=== PATIENT | male | born 1940 | race Caucasian/White ===

== ENCOUNTER → 2016-04-28 | Outpatient (CLI) | payer OTHER, MEDICARE ==
--- NOTE | 2016-04-28 10:46 | DX ---
PA and Lateral Chest History: Flulike symptoms and fatigue in a 75-year-old male; comparison March 29, 2009. Findings: The heart and mediastinal contours are normal. Pulmonary vascularity is normal. No pleural effusions are identified. There is stable elevation of the right hemidiaphragm. There is central rodrigo bronchial thickening. There are no alveolar opacities seen to suggest pneumonia. There has been inter kari placement of a left shoulder arthroplasty. Impression: Findings consistent with airways disease are noted.
== END ==
LOC: BMCIMAGING 10:16
PROVIDERS: ATTEND Family Medicine
DX: J45.909 Unspecified asthma, uncomplicated (principal)

== ENCOUNTER 2016-05-01 14:48 | Inpatient (IN) | payer OTHER, MEDICARE ==
--- NOTE | 2016-05-01 14:49 | EDPHY ---
H & P Time Seen by Provider: 05/01/16 14:49 HPI/ROS: CHIEF COMPLAINT: General weakness HISTORY OF PRESENT ILLNESS: This 75-year-old man went to the [facility] for a cruise 3 weeks ago. He went to his primary care physician's office a week and half ago for a regular checkup and felt his normal self. His was in the hospital for neck surgery and got out about a week ago. He started getting sick the next day with some diarrhea which lasted for for 5 days and now is mostly resolved. This was followed by body aches and generalized weakness and a sense of fever and chills. Today he felt so weak he could not get out of bed in the ambulance was called by his . Nothing focal as far as his weakness. Not associated with cough or shortness of breath, vomiting or diarrhea. He did have nausea today. EMS was initially toned for shortness of breath by the but the patient denies that in the emergency department. REVIEW OF SYSTEMS: Eye: no change in vision ENT: no sore throat Cardiac: no chest pain or syncope Pulmonary: HPI. No cough. Abdomen: HPI, no abdominal pain now. Decreased oral intake. Musculoskeletal: no back pain Skin: no rash Neuro: no headache Constitutional: Chills and myalgias per HPI. : Decreased urination and increased water intake. A comprehensive 10 point review of systems is otherwise negative aside from elements mentioned in the history of present illness. PAST MEDICAL HISTORY: hypertension and GERD, PCP at [facility] Social history: Nonsmoker, lives with his , . General Appearance: Alert and conversant, cooperative. Eyes: No scleral icterus. ENT, Mouth: Dry mucous membranes. Respiratory: Normal respiratory effort, breath sounds equal, lungs are clear to auscultation. Cardiovascular: Regular rate and rhythm. Gastrointestinal: Abdomen is soft and non tender. Neurological: Alert and oriented x3. Normally conversant. Face symmetric, but generally weak. He can lift each foot off the bed independently and has normal dorsiflexion and plantar flexion. Skin: Warm and dry, no rashes. Musculoskeletal: No peripheral edema and no joint swelling. Psychiatric: Not agitated. Emergency Department course/MDM: History of hyponatremia, will check chemistry panel. Chest x-ray influenza and urinalysis. EKG. 1550: BUN/Creat 68/5.2, results discussed, plan for admission with renal consult. IV fluid hydration for clinically dehydrated, NS 1000ml. 1625: Mcneil placed, 450ml out, Dayan here. WBC of 16k noted; UA shows 1-3 RBC, 3-5 WBC not suggestive of UTI. Chest x-ray viewed by myself does not show focal infiltrate to suggest bacterial pneumonia. Patient does not have cough or SOB and is 93% O2 sat on room air on arrival. Will monitor. Constitutional: Initial Vital Signs Temperature (C) 36.9 C 05/01/16 15:03 Heart Rate 100 05/01/16 15:03 Respiratory Rate 18 05/01/16 15:03 Blood Pressure 149/60 H 05/01/16 15:03 O2 Sat (%) 93 05/01/16 15:03 O2 Delivery Mode Nasal Cannula O2 (L/minute) 2 Allergies/Adverse Reactions: No Known Allergies Allergy (Unverified 03/26/09 11:53) Home Medications: Medication Instructions Recorded Atorvastatin Calcium [Lipitor 40 40 mg PO DAILY 05/01/16 mg (*)] Cholecalciferol Vit D3 [Vitamin D3 1,000 units PO DAILY 05/01/16 (*)] FOLIC ACID 0.4 mg PO DAILY 05/01/16 Furosemide [Lasix 20 MG (*)] 20 mg PO DAILY 05/01/16 Loratadine [Claritin] 10 mg PO DAILY 05/01/16 Losartan Potassium [Cozaar 50 mg 100 mg PO DAILY 05/01/16 (*)] Metoprolol Succinate Xr [Toprol Xl 25 mg PO DAILY 05/01/16 25 mg (*)] [place]-3 Fatty Acids [Fish Oil 1000 1,000 mg PO DAILY 05/01/16 mg (*)] Omeprazole 20 mg PO DAILY 05/01/16 amLODIPine BESYLATE [Norvasc 10 mg 10 mg PO DAILY 05/01/16 (*)] Medical Decision Making - Diagnostics EKG Interpretation: 12-lead EKG interpreted by me; official reading is in trace master. My interpretation is sinus rhythm, nonspecific ST flattening, rate 94. Imaging: Chest x-ray viewed by myself shows interstitial infiltrate but no definite lobar pneumonia Differential Diagnosis: Differential for weakness considered including but not limited to hyponatremia, other metabolic, dehydration, influenza, acute coronary syndrome, sepsis. Consult/Admit Bed Type: [place] [id number], Dayan 1600 - Data Points Laboratory Results: Laboratory Results 05/01/16 14:55 05/01/16 14:55 Medications Given: Discontinued Medications Aspirin (Aspirin) 325 mg PO ONCE ONE Stop: 05/01/16 17:50 Last Admin: 05/01/16 18:57 Dose: 325 mg Sodium Chloride (Ns) 1,000 mls @ 0 mls/hr IV ONCE ONE PRN Reason: Wide Open Stop: 05/01/16 15:54 Last Admin: 05/01/16 16:05 Dose: 1,000 mls Sodium Chloride (Ns) 1,000 mls @ 0 mls/hr IV ONCE ONE PRN Reason: Wide Open Stop: 05/01/16 17:07 Last Admin: 05/01/16 17:50 Dose: 1,000 mls Departure - Departure Disposition: [facility] Inpatient Acute Clinical Impression: Acute renal failure Qualifiers: Acute renal failure type: unspecified Qualifier Code: (N17.9) Acute kidney failure, unspecified Condition: Fair
[2016-05-01 15:15] LABS: ADD MORPH? NO; FRAGMENT RBC FLAG 0 (0-99); HEMATOCRIT 37.1 % (40.0-51.0); HEMOGLOBIN 13.6 g/dL (13.7-17.5); LIPEMIA HEMOLYSIS FLAG 90 (0-99); MEAN CELL HEMOGLOBIN 31.6 pg (27.9-34.1); MEAN CELL HEMOGLOBIN CONCENTR. 36.7 g/dL (32.4-36.7); MEAN CELL VOLUME 86.1 fL (81.5-99.8); MEAN PLATELET VOLUME 11.4 fL (8.7-11.7); PLATELET CLUMPS FLAG 10 (0-99); PLATELET COUNT 196 10^3/uL (150-400); RED BLOOD CELL COUNT 4.31 10^6/uL (4.40-6.38); RED CELL DISTRIBUTION WIDTH 13.5 % (11.5-15.2)
--- NOTE | 2016-05-01 15:15 | CPEKG ---
Heart Rate: 94 RR Interval: 638 P-R Interval: 180 QRSD Interval: 98 QT Interval: 396 QTC Interval: 496 P [place]: 62 QRS [place]: 42 T Wave [place]: 14 EKG Severity - BORDERLINE ECG - EKG Impression: SINUS RHYTHM EKG Impression: MINIMAL ST DEPRESSION, LATERAL LEADS EKG Impression: BORDERLINE PROLONGED QT INTERVAL Electronically Signed By: Antonio Amaya 01-May-2016 15:25:51
[2016-05-01 15:17] LABS: ADD DIFF? YES; ADD SCAN? NO; ATYPICAL LYMPHOCYTE FLAG 140 (0-99); LEFT SHIFT FLG 300 (0-99)
[2016-05-01 15:31] LABS: ANION GAP 20 mEq/L (8-16); CALCIUM 7.7 mg/dL (8.5-10.4); CARBON DIOXIDE 20 mEq/l (22-31); CHLORIDE 94 mEq/L (97-110); CREATININE 5.2 mg/dL (0.7-1.3); GLOMERULAR FILTRATION RATE 11; GLUCOSE 135 mg/dL (70-100); POTASSIUM 3.6 mEq/L (3.5-5.2); SODIUM 134 mEq/L (134-144)
[2016-05-01] MEDS ORDERED: NS 1,000 ML IV ONE ×2 (15:53→17:06)
[2016-05-01 16:09] LABS: ECHINOCYTES 2+; PLATELET ESTIMATE ADEQUATE (ADEQ); TOXIC GRANULATION PRESENT
--- NOTE | 2016-05-01 17:19 | DX ---
Chest, AP and Lateral, 3 views History: Weakness, flulike symptoms x1 week, arthralgias Comparison: April 28, 2016 Findings: Best detected on the lateral view is new diffuse interstitial infiltrate and bilateral post erior pleural effusions consistent with bilateral viral pneumonia. A left shoulder replacement remai ns in anatomic alignment. Impression: Viral pneumonitis.
[2016-05-01] MEDS ORDERED: ASPIRIN 325 MG TAB PO ONE (17:49)
--- NOTE | 2016-05-01 18:12 | PDGENHP ---
History and Physical - Chief Complaint weakness, SOB, malasise - History of Present Illness 75 yo male here with multiple complaints. Had diarrhea about a week ago and has been having decreased PO since. No further N/V or diarrhea. Now with generalized malaise. Some SOB. He feels tight. on 2L of O2, baseline is none. He was found to have ARF with elevated Cr. Started on IVF 2 Liters. Reports a hx of prostate enlargement. not treated. He denies CP, but his EKG shows minimal ST depression on the lateral leads. A troponin was not checked. He has Leukocytosis. He reports tactile fevers intermittently for a few days. CXR shows bilateral infiltrate, viral pneumonia vs pneumonitis pattern. Influenza testing was normal. ROS: + per HPI, otherwise negative. Denies CP, + SOB, - palpitations, - leg swelling PMHX: HTN, GERD, HLD SOC: DAILY ETOH (NONE IN OVER A WEEK), TOBACCO SOME TIMES MEDS/ALL: REVIEWED O: VSS ON 2 LO2 NAD AAOX3 MM DRY NO JVD RRR DECREASE LUNG SOUNDS BILATERALLY S/NT/ND NO EDEMA : SLAUGHTER IN PLACE LABS: REVIEWED EKG: BORDERLINE PROLONGED QT, MINIMAL ST DEPRESSION IN LATERAL LEADS I/P #ACUTE RENAL FAILURE, LIKELY PRERENAL. ALTHOUGH HE DOES REPORT A HX ENLARGED PROSTATE #VIRAL VS BACTERIAL BILATERAL PNEUMONIA #DEHYDRATION #N/V/D: RESOLVED PER HIS REPORT #FEVER: INTERMITTENT #MINIMAL ST DEPRESSION ON EKG #BORDERLINE PROLONGED QT PLAN: ADMIT CV: NO CP AT THIS TIME. WILL CHECK STAT TROPONIN. WILL ORDER TTE. NO ZOFRAN OR OTHER AGENTS THAT PROLONG QT RENAL: CONT WITH IVF. HOLD HTN MEDS. HE DOES TAKE LASIX HE SAYS FOR LEG SWELLING. HOLDING. MONITOR CLOSELY ID/PULM: GIVEN HX OF INTERMITTENT FEVER AND LEUKOCYTOSIS, WILL TREAT WITH IV ABX. SOUNDS TIGHT, MAY NEED STEROIDS, BUT WILL DETERMINE CLINICAL COURSE. HEME: LOVENOX GI: REGLAN PRN. PROTONIX. TOTAL TIME IS 65 MINUTES History Information - Allergies/Home Medication List Allergies/Adverse Reactions: No Known Allergies Allergy (Unverified 03/26/09 11:53) Home Medications: Atorvastatin Calcium [Lipitor 40 mg (*)] 40 mg PO DAILY 05/01/16 [Last Taken 11/06] Cholecalciferol Vit D3 [Vitamin D3 (*)] 1,000 units PO DAILY 05/01/16 [Last Taken 04/30/16] FOLIC ACID 0.4 mg PO DAILY 05/01/16 [Last Taken 04/30/16] Furosemide [Lasix 20 MG (*)] 20 mg PO DAILY 05/01/16 [Last Taken 04/30/16] Loratadine [Claritin] 10 mg PO DAILY 05/01/16 [Last Taken 04/30/16] Losartan Potassium [Cozaar 50 mg (*)] 100 mg PO DAILY 05/01/16 [Last Taken 04/30] Metoprolol Succinate Xr [Toprol Xl 25 mg (*)] 25 mg PO DAILY 05/01/16 [Last Taken 04/30/16] [place]-3 Fatty Acids [Fish Oil 1000 mg (*)] 1,000 mg PO DAILY 05/01/16 [Last Taken 04/30/16] Omeprazole 20 mg PO DAILY 05/01/16 [Last Taken 04/30/16] amLODIPine BESYLATE [Norvasc 10 mg (*)] 10 mg PO DAILY 05/01/16 [Last Taken 11/06] I have personally reviewed and updated: medical history, social history - Social History Smoking Status: Never smoked Physical Exam Temp Pulse Resp BP Pulse Ox 36.5 C 76 16 144/70 H 98 05/01/16 16:00 05/01/16 16:00 05/01/16 16:00 05/01/16 16:00 05/01/16 16:00 Lab Data & Imaging Review 05/01/16 14:55 05/01/16 14:55 WBC 16.64 10^3/uL (3.80-9.50) H 05/01/16 14:55 RBC 4.31 10^6/uL (4.40-6.38) L 05/01/16 14:55 Hgb 13.6 g/dL (13.7-17.5) L 05/01/16 14:55 Hct 37.1 % (40.0-51.0) L 05/01/16 14:55 MCV 86.1 fL (81.5-99.8) 05/01/16 14:55 MCH 31.6 pg (27.9-34.1) 05/01/16 14:55 MCHC 36.7 g/dL (32.4-36.7) 05/01/16 14:55 RDW 13.5 % (11.5-15.2) 05/01/16 14:55 Plt Count 196 10^3/uL (150-400) 05/01/16 14:55 MPV 11.4 fL (8.7-11.7) 05/01/16 14:55 Neut % (Auto) Not Reported 05/01/16 14:55 Lymph % (Auto) Not Reported 05/01/16 14:55 [place] % (Auto) Not Reported 05/01/16 14:55 Eos % (Auto) Not Reported 05/01/16 14:55 Baso % (Auto) Not Reported 05/01/16 14:55 Nucleat RBC Rel Count 0.0 % (0.0-0.2) 05/01/16 14:55 Absolute Neuts (auto) Not Reported 05/01/16 14:55 Absolute Lymphs (auto) Not Reported 05/01/16 14:55 Absolute Monos (auto) Not Reported 05/01/16 14:55 Absolute Eos (auto) Not Reported 05/01/16 14:55 Absolute Basos (auto) Not Reported 05/01/16 14:55 Absolute Nucleated RBC 0.00 10^3/uL (0-0.01) 05/01/16 14:55 Immature Gran % Not Reported 05/01/16 14:55 Seg Neutrophils % 68 % 05/01/16 14:55 Band Neutrophils % 20 % 05/01/16 14:55 Lymphocytes % 8 % 05/01/16 14:55 Monocytes % 1 % 05/01/16 14:55 Eosinophils % 2 % 05/01/16 14:55 Metamyelocytes % 1 % 05/01/16 14:55 Immature Gran # Not Reported 05/01/16 14:55 Absolute Seg Neuts 11.32 10^/uL (1.70-6.50) H 05/01/16 14:55 Absolute Band Neuts 3.33 10^3/uL (0.00-0.70) H 05/01/16 14:55 Absolute Lymphocytes 1.33 10^3/uL (1.00-3.00) 05/01/16 14:55 Absolute Monocytes 0.17 10^3/uL (0.30-0.80) L 05/01/16 14:55 Absolute Eosinophils 0.33 10^3/uL (0.03-0.40) 05/01/16 14:55 Absolute Metamyelocyte 0.17 10^3/mL (0.00-0.00) H 05/01/16 14:55 Toxic Granulation PRESENT H 05/01/16 14:55 Platelet Estimate ADEQUATE (ADEQ) 05/01/16 14:55 Echinocytes 2+ H 05/01/16 14:55 Sodium 134 mEq/L (134-144) 05/01/16 14:55 Potassium 3.6 mEq/L (3.5-5.2) 05/01/16 14:55 Chloride 94 mEq/L (97-110) L 05/01/16 14:55 Carbon Dioxide 20 mEq/l (22-31) L 05/01/16 14:55 Anion Gap 20 mEq/L (8-16) H 05/01/16 14:55 BUN 68 mg/dL (7-23) H 05/01/16 14:55 Creatinine 5.2 mg/dL (0.7-1.3) H 05/01/16 14:55 Estimated GFR 11 05/01/16 14:55 Glucose 135 mg/dL (70-100) H 05/01/16 14:55 Calcium 7.7 mg/dL (8.5-10.4) L 05/01/16 14:55 Urine RBC 1-3 /hpf (0-3) 05/01/16 16:30 Urine WBC 3-5 /hpf (0-3) H 05/01/16 16:30 Ur Epithelial Cells NONE SEEN /lpf (NONE-1+) 05/01/16 16:30 Influenza Typ A,B (DFA) NEGATIVE FOR FLU (NEGATIVE) 05/01/16 14:55 Assessment & Plan Assessment: Acute renal failure (Acute)
[2016-05-01] MEDS ORDERED: METOCLOPRAMIDE 10 MG TAB PO PRN (18:13)
[2016-05-01] MEDS: PANTOPRAZOLE SODIUM 40 MG in NS 100 ML IV SCH (18:58)
[2016-05-01] MEDS: NS 1,000 ML IV SCH (18:59)
[2016-05-01 19:28] LABS: TROPONIN I 0.239 ng/mL (0-0.034)
[2016-05-01] MEDS: AZITHROMYCIN IV 500 MG in D5W 250 ML IV SCH (19:47)
--- NOTE | 2016-05-01 19:56 | SOAPPROG ---
SOAP Progress Note Assessment/Plan: Assessment:Plan: ARF-in setting of lasix, losartan, diclofenac, diarrhea and poor PO intake -check urine studies -quantify urine protein if present -urine culture if indicated -check us of kidneys -rai for now Muscle aches-on statin -recent flu s/p tamiflu per patient -stop lipitor -check CPK Viral pneumonitis on CXR-s/p Tamiflu -doubt there is role for second course -being covered for bacterial pneumonia with ceftriaxone and azithromycin 05/01/16 19:53 Subjective: muscle aches and ARF Objective: Vital Signs Temp Pulse Resp BP Pulse Ox 36.5 C 95 18 113/55 L 93 05/01/16 18:09 05/01/16 18:09 05/01/16 18:09 05/01/16 18:09 05/01/16 18:09 04/30/16 05/01/16 05/02/16 05:59 05:59 05:59 Output Total 1110 Balance -1110 Physical Exam - Physical Exam General Appearance: alert, moderate distress EENT: normal ENT inspection Neck: normal inspection Respiratory: decreased breath sounds, rales Cardiac/Chest: regular rate, rhythm, No diastolic murmur, No systolic murmur Abdomen: normal bowel sounds, non-tender, soft Extremities: other (muscle tenderness), No swelling ICD10 Worksheet Patient Problems: Problems Problem Status Diagnosed Acute renal failure Acute
[2016-05-01] MEDS: HEPARIN 5,000 UNIT/0.5 ML SYR SC SCH (20:11)
--- NOTE | 2016-05-01 20:37 | GCON ---
[f rep st] CONSULTATION NEPHROLOGY CONSULTATION. DATE OF CONSULTATION: 05/01/2016 REASON FOR CONSULTATION: Acute renal failure. ASSESSMENT: 1. Acute renal failure related to dehydration with concurrent use of nonsteroidals, angiotensin receptor yang and loop diuretic. 2. History of a normal creatinine as recently as 1 week ago with a value of 1.0 on 04/28/2016. 3. History of diarrhea. 4. CXR with evidence of viral pneumonitis 5. Severe muscle and joint aches RECOMMENDATIONS: 1. Hydrate. 2. Check urine studies. 3. Check CPK due to the patient's muscle symptoms. 4. Check renal ultrasound. 5. Hold losartan and loop diuretic. 6. Follow labs. 7. Quantify urine protein if dipstick abnormal. 8. Discontinue Lipitor for now HISTORY: The patient is a 75-year-old male I have been asked to consult on by Dr. Antonio Amaya from the emergency room. He has close to a 12-day history of malaise. He started feeling ill during the last couple days of March. He saw his primary care physician, per his report, on April 25. At that time he had labs drawn, which showed a creatinine of 0.8. It sounds like he was treated with Tamiflu at that time. He came back 3 days later, on the . He had been having problems with nausea for several days. He had severe diarrhea one evening. He denied any fevers but did have achy joints and muscles with progressive weakness. He was given some IV fluid on the and it sounds like he felt better for a day or so. He then continued to decline and subsequently was referred to the emergency room at [facility] for further evaluation and treatment. In the emergency room today he had a creatinine of 5.2. Clinically, he was felt to be dehydrated. IV fluids were started. Mcneil catheter was placed which produced about 400 cc of urine per Dr. Amaya's report. Currently he is hemodynamically stable. He complains of severe muscle aches. He has been on his Lipitor long-term. He has had no change in that medication. He has had a left heart catheterization performed way back on March 26, 2009 , which revealed mild coronary artery disease at that time. He has been using diclofenac intermittently. He evidently started taking it twice a day the end of March. This helped with his muscle aches. He has also been using acetaminophen. He denies any other changes in his routine. He states with his initial illness he was given Tamiflu due to concerns of influenza as mentioned above, the exact timing of this is not clear to me. PAST SURGICAL HISTORY: He has had a left shoulder replacement back on 2009. OUTPATIENT MEDICATIONS: Amlodipine 10 mg daily, atorvastatin 40 mg daily, Lasix 20 mg daily, losartan 100 mg daily, metoprolol 25 mg daily, omeprazole 20 mg daily, diclofenac 75 mg twice daily. He takes [id number] medications in the form of aspirin, fish oil, folic acid, loratadine, vitamin D3 as well as occasional ibuprofen. He has not been using the ibuprofen along with the diclofenac. He was born in [place], [place]. He grew up in [place]. He came out to [place] in 1956 to attend college. He graduated with a degree in liberal arts from and then went on to get a Master's in social work at . 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 He is . His has medical problems and underwent a recent surgery and is in need of help at home. ALLERGIES: None. FAMILY HISTORY: Noncontributory. SOCIAL HISTORY: Noncontributory. REVIEW OF SYSTEMS: Negative except for that included in history of present illness. PHYSICAL EXAMINATION: VITAL SIGNS: Temperature 36.5, pulse 95, respirations 18 , blood pressure 113/55. He is saturating 93% on 2 L. APPEARANCE: Mild distress. Skin unremarkable. NEUROLOGICAL: Grossly intact. Muscle aches all over. HEENT: Head atraumatic, normocephalic. NECK: Unremarkable. HEART: Regular with no extra heart sounds. LUNGS: Decreased with scattered rales. ABDOMEN: Exam benign. EXTREMITIES: Free of edema. Distal pulses are intact. X-ray shows changes suggestive of viral pneumonitis. LABS: As previously mentioned, show a creatinine of 5.2 with normal electrolytes. Calcium 7.7. Glucose mildly elevated at 135. Urinalysis is microscopic only and shows 3-5 white blood cells. Flu screen was negative on . CBC remarkable for a white count of 16.6 thousand, platelet count of 196,000. ASSESSMENT: Acute renal failure. The patient has chest x-ray findings consistent of viral pneumonitis. He has had a recent Tamiflu, per his report. His current flu screen is negative but certainly his history of this illness with muscle aches could be manifestation of the flu. It does not seem like he would need a repeat course of therapy with Tamiflu. He is being placed on broad spectrum antibiotics in the form of azithromycin and ceftriaxone, which is probably reasonable given his suspected post influenza state. He has acute renal failure. His Lasix and losartan have been discontinued. I would stop his atorvastatin due to his muscle aches. I would check a CPK. Renal ultrasound will be requested just to make sure there are no other anatomic issues that could be contributing to his acute renal failure. Urine studies will be performed to check his fractional excretion of sodium as well as quantify any protein if present. With his emergency room study, we do not know if there is evidence of hematuria or proteinuria therefore we will go ahead and check a dipstick to see if there are abnormalities present on that. We will get labs again in the morning. He has no acute indications for dialysis. Further evaluation and treatment will depend on the results of his initial blood and urine studies. /[id number]/MODL MTDD
--- NOTE | 2016-05-01 21:05 | CPEKG ---
Heart Rate: 96 RR Interval: 625 P-R Interval: 192 QRSD Interval: 118 QT Interval: 396 QTC Interval: 501 P [place]: 61 QRS [place]: 35 T Wave [place]: -19 EKG Severity - ABNORMAL ECG - EKG Impression: SINUS RHYTHM EKG Impression: NONSPECIFIC INTRAVENTRICULAR CONDUCTION DELAY EKG Impression: BORDERLINE ST DEPRESSION, LATERAL LEADS Electronically Signed By: Evelio Ambriz 01-May-2016 21:43:32
[2016-05-01] MEDS: IPRATROPIUM/ALBUTEROL 3 ML DEYVIAL IH SCH (21:06)
[2016-05-02 00:13] LABS: COLOR YELLOW; LEUKOCYTE ESTERASE,URINE TRACE (NEGATIVE); NITRITE,URINE NEGATIVE (NEGATIVE)
[2016-05-02 00:24] LABS: AMORPHOUS PRESENT /hpf (NONE-1+); BACTERIA 1+ /hpf (NONE SEEN); MUCUS TRACE /lpf (NONE-1+)
[2016-05-02] MEDS: HEPARIN 5,000 UNIT/0.5 ML SYR SC SCH ×3 (05:12→21:10)
[2016-05-02] MEDS: IPRATROPIUM/ALBUTEROL 3 ML DEYVIAL IH SCH ×5 (05:36→22:31)
[2016-05-02 05:51] LABS: % IMMATURE GRANULYOCYTES 0.7 % (0.0-1.1); ABSOLUTE IMMATURE GRANULOCYTES 0.12 10^3/uL (0.00-0.10); ADD DIFF? NO; ADD MORPH? NO; ADD SCAN? YES; FRAGMENT RBC FLAG 0 (0-99); HEMATOCRIT 32.8 % (40.0-51.0); HEMOGLOBIN 11.9 g/dL (13.7-17.5); LIPEMIA HEMOLYSIS FLAG 90 (0-99); MEAN CELL HEMOGLOBIN 31.1 pg (27.9-34.1); MEAN CELL HEMOGLOBIN CONCENTR. 36.3 g/dL (32.4-36.7); MEAN CELL VOLUME 85.6 fL (81.5-99.8); MEAN PLATELET VOLUME 11.2 fL (8.7-11.7); PLATELET CLUMPS FLAG 10 (0-99); PLATELET COUNT 175 10^3/uL (150-400); RED BLOOD CELL COUNT 3.83 10^6/uL (4.40-6.38); RED CELL DISTRIBUTION WIDTH 13.5 % (11.5-15.2)
[2016-05-02 05:57] LABS: ATYPICAL LYMPHOCYTE FLAG 110 (0-99); LEFT SHIFT FLG 300 (0-99)
[2016-05-02 06:05] LABS: ANION GAP 18 mEq/L (8-16); CALCIUM 6.6 mg/dL (8.5-10.4); CARBON DIOXIDE 18 mEq/l (22-31); CHLORIDE 102 mEq/L (97-110); CREATININE 4.8 mg/dL (0.7-1.3); GLOMERULAR FILTRATION RATE 12; GLUCOSE 88 mg/dL (70-100); POTASSIUM 3.3 mEq/L (3.5-5.2); SODIUM 138 mEq/L (134-144)
[2016-05-02 06:09] LABS: MAGNESIUM 0.8 mg/dL (1.6-2.3)
[2016-05-02] MEDS ORDERED: PROTOCOL MAGNESIUM 1 DOSE IV PRN (06:13)
[2016-05-02] MEDS ORDERED: PROTOCOL POTASSIUM 1 DOSE MISC PRN (06:13)
[2016-05-02 06:23] LABS: SCAN NEGATIVE
[2016-05-02] MEDS ORDERED: MAGNESIUM SULF 2 GM/WATER 50 ML IV ONE (06:31)
[2016-05-02] MEDS ORDERED: POTASSIUM CL 10 MEQ TAB PO ONE ×2 (07:56→20:02)
--- NOTE | 2016-05-02 08:15 | US ---
Complete Retroperitoneal Ultrasound History: Acute renal failure. Comparison: None available. Findings: The right kidney measures 11.1 x 6.4 x 5.6 cm and the left kidney measures 11.4 x 6.1 x 5.3 cm. The kidneys are suboptimally visualized due to body habitus. The kidneys appear to have normal e chotexture, cortical thickness, and contour without hydronephrosis. The bladder is decompressed by a Mcneil. Impression: No visible etiology for the patient's acute renal failure.
[2016-05-02] MEDS: METOPROLOL SUCCINATE XR 25 MG TAB PO SCH (08:20)
[2016-05-02] MEDS: CETIRIZINE 10 MG TAB PO SCH (08:23)
[2016-05-02] MEDS: FOLIC ACID 1 MG TAB PO SCH (08:23)
[2016-05-02] MEDS: CHOLECALCIFEROL VIT D3 1,000 UNITS TAB PO SCH (08:23)
[2016-05-02] MEDS: OMEGA-3 FATTY ACIDS 1,000 MG CAP PO SCH (08:24)
--- NOTE | 2016-05-02 08:40 | CPEKG ---
Heart Rate: 110 RR Interval: 545 P-R Interval: 192 QRSD Interval: 102 QT Interval: 311 QTC Interval: 421 P [place]: 28 QRS [place]: 5 EKG Severity - ABNORMAL ECG - EKG Impression: SINUS TACHYCARDIA EKG Impression: NONSPECIFIC T ABNORMALITIES, LATERAL LEADS Electronically Signed By: Evelio Ambriz 02-May-2016 14:42:19
[2016-05-02] MEDS ORDERED: PANTOPRAZOLE SODIUM 40 MG TAB PO SCH (09:00)
[2016-05-02] MEDS ORDERED: ATORVASTATIN CALCIUM 40 MG TAB PO SCH (09:00)
[2016-05-02] MEDS: AZITHROMYCIN IV 500 MG in D5W 250 ML IV SCH (09:11)
[2016-05-02] MEDS: PANTOPRAZOLE SODIUM 40 MG in NS 100 ML IV SCH (09:53)
[2016-05-02] MEDS: PANTOPRAZOLE SODIUM 40 MG TAB PO SCH (09:54)
--- NOTE | 2016-05-02 11:31 | SOAPPROG ---
SOAP Progress Note Assessment/Plan: Assessment/Plan: XIMENA: Cr peaked at 5.2, improving with IVFs. CK wnl, renal US reviewed with no acute findings. - Continue IVFs. - Will continue to monitor renal parameters. - Continue to hold ACEI and Lasix. - Avoid MOM, morphine, demerol, NSAIDs, contrast, aminoglycosides, fleets, and other nephrotoxins. Hypokalemia: replaced today, will monitor. Hypomagnesemia: replaced today, will monitor. Subjective: No acute events overnight. Pt states that he still has muscle aches but it's a little better, feeling more weak overall. Objective: Vital Signs Temp Pulse Resp BP Pulse Ox 36.7 C 112 H 20 133/62 H 90 L 05/02/16 07:15 05/02/16 08:20 05/02/16 07:15 05/02/16 08:20 05/02/16 07:15 Laboratory Results 05/02/16 05:49 05/02/16 05:49 05/01/16 05/02/16 05/03/16 05:59 05:59 05:59 Intake Total 350 Output Total 1560 Balance -1210 General: alert and oriented, no acute distress Eyes: EOMI, PERRL OP: Clear CV: RRR Resp: CTA bilat, nonlabored respirations Abd; Soft, NT Ext: trace edema BLE Neuro: CN II-XII grossly intact, no asterixis Psych: cooperative, appropriate mood and affect ICD10 Worksheet Patient Problems: Problems Problem Status Diagnosed Acute renal failure Acute
--- NOTE | 2016-05-02 14:55 | ECHO ---
[id number] + + [address] : : [place] [address] : : [phone] + + Adult Echocardiographic Report + ------+ :Name: RAVIN GRANDA SStudy Date: 05/02/2016 09:10 AM : : Hospital Admission Number: [id number] Locatio n: 370: :: 1940 Gender: Male Height: 68 in : :Age: 75 yrs Race: WH Weight: 205 lb : :Reason For Study: Eval LV Fx : : BSA: 2.1 meters 2 : :History: Abnormal EKG, Tachycardia, Acute Renal Failure : + ------+ MMode/2D Measurements & Calculations IVSd: 1.2 cm LVIDd: 4.4 cm FS: 43.6 % Ao root diam: 3.0 cm LVPWd: 1.2 cm LVIDs: 2.5 cm EDV(Teich): 89.3 ml ACS: 1.6 cm ESV(Teich): 22.3 ml EF(Teich): 75.0 % Normal Measurement Values: + + :LVIDd (3.5-5.7cm) IVSd (0.6-1.1cm) LVPWd (0.6-1.1cm) Aortic Root (2.0-3.7cm)Left Atrium (1.5-4.0cm): :LV Vol(d) (76-115ml) LV Vol(s) (29-48ml) Ejec Fraction (50-65%)PV Vikas (0.6- 1.2m/s) TV Vikas (0.4-1.0m/s) : :MV E Vikas (0.8-1.0m/s)MV A Vikas (0.3-1.0m/s)LVOT Vikas (0.7-1.2m/s) Asc Ao Vikas ( 0.9-1.8m/s) : + + Doppler Measurements & Calculations MV E max vikas: 54.8 cm/sec Ao V2 max: 162.9 cm/sec LV V1 max: 97.7 cm/sec MV A max vikas: 121.9 cm/sec Ao max P.6 mmHg LV V1 max P.8 mmHg MV E/A: 0.45 Left Ventricle The left ventricle is normal in size. There is normal left ventricular wall thickness. The left ventricular ejection fraction is normal. There is Doppler evidence for diastolic dysfunction. Ejection Fraction = 75%. There is no obvious left venticular wall motion. Right Ventricle The right ventricle is normal in size and function. Atria The left atrial size is normal. Right atrial size is normal. Mitral Valve The mitral valve is normal in structure and function. There is no evidence of mitral valve prolapse. There is no mitral valve stenosis. There is no mitral regurgitation noted. Tricuspid Valve Normal tricuspid valve. No tricuspid regurgitation. Aortic Valve The aortic valve is normal in structure and function. There is no aortic stenosis. There is no aortic insufficiency. Pulmonic Valve The pulmonic valve is normal in structure and function. There is no pulmonic valvular regurgitation. Great Vessels The aortic root is normal size. Pericardium/Pleural Tachycardia. Possible small pericardial effusion vs fat pad. Conclusion A complete two-dimensional transthoracic echocardiogram was performed (2D, M-mode, Doppler and color flow Doppler). The left ventricular ejection fraction is normal. There is Doppler evidence for diastolic dysfunction. Ejection Fraction = 75%. There is no obvious left venticular wall motion. The right ventricle is normal in size and function. The mitral valve is normal in structure and function. The aortic valve is normal in structure and function. Tachycardia. Possible small pericardial effusion vs fat pad. Final Reading Physician: Elsie Bishop signed on 05/02/2016 02:53 PM Ordering Physician: Shorty Dwyer Performed By: Jed Rowell, LINDACS
--- NOTE | 2016-05-02 15:43 | HOSPPROG ---
Hospitalist Progress Note Assessment/Plan: * acute renal failure * suspected prerenal * improving with fluids * nephrology is following * normal kidneys on ultrasound * viral pneumonitis versus superimposed pneumonia * does have elevated white blood cell count * will continue with antibiotics for community-acquired pneumonia * recent influenza * history of hypertension * holding medications * DVT prophylaxis * heparin Subjective: A little bit better today. Some cough Objective: Vital Signs Temp Pulse Resp BP Pulse Ox 36.8 C 118 H 20 136/68 H 90 L 05/02/16 15:10 05/02/16 15:10 05/02/16 15:10 05/02/16 15:10 05/02/16 15:10 Laboratory Results 05/02/16 05:49 05/02/16 05:49 05/01/16 05/02/16 05/03/16 05:59 05:59 05:59 Intake Total 350 Output Total 1560 Balance -1210 - Physical Exam Constitutional: no apparent distress, appears nourished, not in pain Eyes: anicteric sclera, EOMI Ears, Nose, Mouth, Throat: moist mucous membranes, hearing normal Cardiovascular: regular rate and rhythym, no murmur, rub, or gallop Respiratory: no respiratory distress Gastrointestinal: normoactive bowel sounds, soft, non-tender abdomen, no palpable masses Skin: warm Neurologic: AAOx3 Psychiatric: interacting appropriately, not anxious, not encephalopathic, thought process linear ICD10 Worksheet Patient Problems: Problems Problem Status Diagnosed Acute renal failure Acute
[2016-05-02] MEDS: NS 1,000 ML IV SCH (16:03)
[2016-05-02 18:39] LABS: ADD MORPH? NO; FRAGMENT RBC FLAG 0 (0-99); HEMATOCRIT 33.8 % (40.0-51.0); HEMOGLOBIN 12.2 g/dL (13.7-17.5); LIPEMIA HEMOLYSIS FLAG 90 (0-99); MEAN CELL HEMOGLOBIN 31.1 pg (27.9-34.1); MEAN CELL HEMOGLOBIN CONCENTR. 36.1 g/dL (32.4-36.7); MEAN CELL VOLUME 86.2 fL (81.5-99.8); MEAN PLATELET VOLUME 10.9 fL (8.7-11.7); PLATELET CLUMPS FLAG 0 (0-99); PLATELET COUNT 177 10^3/uL (150-400); RED BLOOD CELL COUNT 3.92 10^6/uL (4.40-6.38); RED CELL DISTRIBUTION WIDTH 13.4 % (11.5-15.2)
[2016-05-02 18:42] LABS: ATYPICAL LYMPHOCYTE FLAG 110 (0-99); LEFT SHIFT FLG 300 (0-99)
[2016-05-02 18:57] LABS: ALANINE AMINOTRANSFERASE 41 IU/L (21-72); ALBUMIN 2.4 g/dL (3.5-5.0); ALKALINE PHOSPHATASE 162 IU/L (38-126); ANION GAP 17 mEq/L (8-16); ASPARTATE AMINOTRANSFERASE 31 IU/L (17-59); BILIRUBIN-CONJUGATED 0.7 mg/dL (0.0-0.5); BILIRUBIN-UNCONJUGATED 0.3 mg/dL (0.0-1.1); CALCIUM 6.8 mg/dL (8.5-10.4); CARBON DIOXIDE 16 mEq/l (22-31); CHLORIDE 102 mEq/L (97-110); CREATININE 4.5 mg/dL (0.7-1.3); GLOMERULAR FILTRATION RATE 13; GLUCOSE 107 mg/dL (70-100); POTASSIUM 3.5 mEq/L (3.5-5.2); SODIUM 135 mEq/L (134-144); TOTAL PROTEIN 5.7 g/dL (6.3-8.2)
[2016-05-02 19:08] LABS: TROPONIN I 0.355 ng/mL (0-0.034)
[2016-05-02 19:17] LABS: ADD DIFF? YES; ADD SCAN? NO; SCAN POSITIVE
--- NOTE | 2016-05-02 19:22 | SOAPPROG ---
TIGIST Progress Note Assessment/Plan: Assessment: cath 2010 with min. CAD. will see in AM Plan: 05/02/16 19:21 Objective: Vital Signs Temp Pulse Resp BP Pulse Ox 98.3 F 130 H 23 H 136/68 H 90 L 05/02/16 15:10 05/02/16 16:53 05/02/16 16:53 05/02/16 15:10 05/02/16 16:53 Laboratory Results 05/02/16 18:30 05/02/16 18:30 05/01/16 05/02/16 05/03/16 05:59 05:59 05:59 Intake Total 350 2553 Output Total 1560 500 Balance -1210 2053 ICD10 Worksheet Patient Problems: Problems Problem Status Diagnosed Acute renal failure Acute
[2016-05-02 19:25] LABS: PLATELET ESTIMATE ADEQUATE (ADEQ); SCHISTOCYTES 1+
[2016-05-02 19:26] LABS: ECHINOCYTES 2+; LARGE PLATELETS PRESENT
--- NOTE | 2016-05-02 21:27 | DX ---
Portable Chest, Single View May 02, 2016 History: Follow up pneumonia. Comparison: May 01, 2016. Findings: Peribronchial wall thickening is seen bilaterally. Opacification is seen in the left lowe r lobe and possibly subtly in the right lower lobe, worsened over the interval. The heart size is wi thin normal limits. 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 De generative change is seen in the right shoulder. Impression: Underlying bronchitis and probable pneumonia in the left lower lobe, worsening over the interval, and questionable early pneumonia in the right lower lobe.
--- NOTE | 2016-05-02 22:30 | HOSPPROG ---
Hospitalist Progress Note Assessment/Plan: I was called see this patient for diffuse severe pains, uncontrolled. I reviewed the patient's hospital chart today as well as laboratory data and imaging studies. As I visited the patient he was somewhat anxious but very well oriented. He was complaining of severe diffuse aches pretty much from head to toe that did not seem like skeletal or articular. He was not complaining of any worsening shortness of breath, nausea, neurologic symptoms, fever symptoms. He tells me that pains started at the very onset of this current illness and waxed and waned better more severe tonight. He is stating that he feels like he needs to get in bed because the symptoms are worse up in the chair but the nurse points out during our conversation that the patient complained that the pains were bad when he was in the bed and seemed to get better when the staff got him out of bed into the chair. Remains tachycardic in fact is more tachycardic tonight, at times getting into the 130s. Vital signs are otherwise stable. On examination he is wide awake alert oriented talkative but anxious. He does not have tremor. He is not disoriented. His respirations do not appear labored though he is still breathing some nasal cannula oxygen. Lung sounds are clear heart is regular abdomen soft nondistended nontender. No rashes or skin lesions. His IV site looks good. no other specific examination findings Current some laboratory data which included a lactic acid level minimally elevated at 2.8, not surprising given his renal function and metabolic acidosis presence his admission. [place] [address] slightly higher than before but his hemoglobin is slightly better. Renal function continues to improve slightly, however his creatinine is still greater than four. troponin is essentially unchanged at 0.3. At he did have a normal CPK done yesterday. He has had 3 EKGs here so far which showed no specific abnormality other than tachycardia. The patient does not have pleuritic chest pain or shortness of breath and but he is on oxygen and tachycardic. I would consider PE is a possibility that this would not explain his diffuse body aches. Certainly his renal function rules out getting a CT scan and I believe in him a V/Q scan may not be very helpful. It may be worth considering simply anticoagulating him and considering a V/ Q skin in the morning. And there is nothing growing in culture so far but he is on empiric antibiotics in case there is any bacterial infection. I have given him some further fluid boluses tonight which did seem to help his pulse somewhat. Will continue to follow closely Objective: Vital Signs Temp Pulse Resp BP Pulse Ox 36.6 C 115 H 22 H 138/68 H 93 05/02/16 19:45 05/02/16 19:30 05/02/16 19:30 05/02/16 19:30 05/02/16 19:30 Laboratory Results 05/02/16 18:30 05/02/16 18:30 05/01/16 05/02/16 05/03/16 06:59 06:59 06:59 Intake Total 350 2553 Output Total 1560 500 Balance -1210 2053 ICD10 Worksheet Patient Problems: Problems Problem Status Diagnosed Acute renal failure Acute
[2016-05-03] MEDS: IPRATROPIUM/ALBUTEROL 3 ML DEYVIAL IH SCH ×4 (05:14→21:05)
[2016-05-03] MEDS: HEPARIN 5,000 UNIT/0.5 ML SYR SC SCH ×3 (05:32→21:35)
[2016-05-03 06:08] LABS: ANION GAP 14 mEq/L (8-16); CALCIUM 6.6 mg/dL (8.5-10.4); CARBON DIOXIDE 16 mEq/l (22-31); CHLORIDE 106 mEq/L (97-110); CREATININE 4.2 mg/dL (0.7-1.3); GLOMERULAR FILTRATION RATE 14; GLUCOSE 101 mg/dL (70-100); MAGNESIUM 1.7 mg/dL (1.6-2.3); POTASSIUM 3.6 mEq/L (3.5-5.2); SODIUM 136 mEq/L (134-144)
[2016-05-03 06:32] LABS: % IMMATURE GRANULYOCYTES 1.1 % (0.0-1.1); ABSOLUTE IMMATURE GRANULOCYTES 0.22 10^3/uL (0.00-0.10); ADD DIFF? NO; ADD MORPH? NO; ADD SCAN? YES; FRAGMENT RBC FLAG 0 (0-99); LIPEMIA HEMOLYSIS FLAG 90 (0-99); MEAN CELL HEMOGLOBIN 31.5 pg (27.9-34.1); MEAN CELL HEMOGLOBIN CONCENTR. 36.4 g/dL (32.4-36.7); MEAN CELL VOLUME 86.6 fL (81.5-99.8); MEAN PLATELET VOLUME 11.7 fL (8.7-11.7); PLATELET CLUMPS FLAG 30 (0-99); PLATELET COUNT 177 10^3/uL (150-400); RED BLOOD CELL COUNT 3.81 10^6/uL (4.40-6.38); RED CELL DISTRIBUTION WIDTH 14.2 % (11.5-15.2)
[2016-05-03 06:34] LABS: LEFT SHIFT FLG 300 (0-99)
[2016-05-03 06:35] LABS: ATYPICAL LYMPHOCYTE FLAG 100 (0-99)
[2016-05-03 07:04] LABS: SCAN NEGATIVE
[2016-05-03] MEDS ORDERED: POTASSIUM CL 10 MEQ TAB PO ONE (07:09)
[2016-05-03] MEDS: PANTOPRAZOLE SODIUM 40 MG TAB PO SCH (08:55)
[2016-05-03] MEDS: AZITHROMYCIN 250 MG TAB PO SCH (08:55)
[2016-05-03] MEDS: METOPROLOL SUCCINATE XR 25 MG TAB PO SCH (08:55)
[2016-05-03] MEDS: OMEGA-3 FATTY ACIDS 1,000 MG CAP PO SCH (08:56)
[2016-05-03] MEDS: CHOLECALCIFEROL VIT D3 1,000 UNITS TAB PO SCH (08:56)
[2016-05-03] MEDS: FOLIC ACID 1 MG TAB PO SCH (08:56)
[2016-05-03] MEDS: CETIRIZINE 10 MG TAB PO SCH (08:56)
[2016-05-03] MEDS ORDERED: MAGNESIUM SULF 1 GM/DEXTROSE 100 ML IV ONE (09:11)
[2016-05-03] MEDS ORDERED: CALCIUM GLUCONATE 50 ML IV ONE (09:39)
--- NOTE | 2016-05-03 09:54 | HOSPPROG ---
Hospitalist Progress Note Assessment/Plan: * acute renal failure * suspected prerenal * slow improvement with fluids * nephrology is following * normal kidneys on ultrasound * body aches * could be from worsening infection but wondering if it may be electrolyte imbalances * will replete calcium a little bit * viral pneumonitis versus superimposed pneumonia * chest x-ray is worse with worsening white blood cell count * will change ceftriaxone to Zosyn - possible aspiration pneumonia * recent influenza * history of hypertension * holding medications * DVT prophylaxis * heparin Subjective: Had a lot of body aches yesterday which seems to be better. Does feel continued weakness. A little bit of cough Objective: Vital Signs Temp Pulse Resp BP Pulse Ox 37.1 C 101 H 20 142/87 H 95 05/03/16 08:00 05/03/16 08:55 05/03/16 08:00 05/03/16 08:55 05/03/16 08:00 Laboratory Results 05/03/16 04:15 05/03/16 04:15 05/02/16 05/03/16 05/04/16 05:59 05:59 05:59 Intake Total 350 3478 Output Total 1560 1100 Balance -1210 2378 chest x-ray personally viewed interpreted discussed Nephrology - Physical Exam Constitutional: no apparent distress, appears nourished, not in pain Eyes: anicteric sclera, EOMI Ears, Nose, Mouth, Throat: moist mucous membranes, hearing normal Cardiovascular: regular rate and rhythym, no murmur, rub, or gallop, edema ( trace) Respiratory: no respiratory distress, no rales or rhonchi, clear to auscultation Gastrointestinal: normoactive bowel sounds, soft, non-tender abdomen, no palpable masses Skin: warm Neurologic: AAOx3 Psychiatric: interacting appropriately, not anxious, not encephalopathic, thought process linear ICD10 Worksheet Patient Problems: Problems Problem Status Diagnosed Acute renal failure Acute
[2016-05-03 10:18] LABS: IONIZED CALCIUM 0.96 MMOL/L (1.12-1.30)
[2016-05-03] MEDS: NS 1,000 ML IV SCH (11:00)
[2016-05-03] MEDS: PIPERACILLIN/TAZO 2.25 GM/DEX 50 ML IV SCH ×2 (12:13→17:32)
--- NOTE | 2016-05-03 18:35 | SOAPPROG ---
SOAP Progress Note Assessment/Plan: Assessment: 1. arf: Creat trending down on ivf. FENA not low, presumably this is ischemic atn from nsaids/arb/diuretic in context of infection. Did have sig leukocyturia with neg Ucx, therefore ain is possibility. PPI would be most likely culprit in this case. Will d/c ivf as he does not appear particularly dry, will also send repeat ua to see if wbc's have cleared. If creat cont down off ivf I would not recommend bx. If creat plateaus or increases and leukocyturia persists we will need to consider bx to exclude ain. 2. pneumonia: on abx, repeat cxr sl worse. D/c ivf as above to avoid complicating this with volume overload. Increasing wbc concerning. 3. htn: arb on hold 4. hypoCa: replaced, will check phos, pth Plan: 05/03/16 18:29 05/03/16 18:35 05/03/16 18:36 Subjective: Still quite weak but better than on admit. Objective: Vital Signs Temp Pulse Resp BP Pulse Ox 37.1 C 110 H 22 H 133/68 H 94 05/03/16 16:00 05/03/16 16:50 05/03/16 16:50 05/03/16 16:00 05/03/16 16:50 Laboratory Results 05/03/16 04:15 05/03/16 04:15 05/02/16 05/03/16 05/04/16 05:59 05:59 05:59 Intake Total 350 3478 1850 Output Total 1560 1100 1000 Balance -1210 2378 850 Physical Exam - Physical Exam General Appearance: other (a bit tremulous) Respiratory: lungs clear Cardiac/Chest: regular rate, rhythm Abdomen: non-tender, other (obese) Extremities: pedal edema (none) ICD10 Worksheet Patient Problems: Problems Problem Status Diagnosed Acute renal failure Acute
[2016-05-03 20:05] LABS: COLOR YELLOW; LEUKOCYTE ESTERASE,URINE NEGATIVE (NEGATIVE); NITRITE,URINE NEGATIVE (NEGATIVE)
[2016-05-03 20:09] LABS: BACTERIA TRACE /hpf (NONE SEEN); MUCUS TRACE /lpf (NONE-1+); RBC,URINE 15-25 /hpf (0-3)
[2016-05-04] MEDS: PIPERACILLIN/TAZO 2.25 GM/DEX 50 ML IV SCH ×4 (00:09→17:58)
[2016-05-04 04:23] LABS: ADD DIFF? YES; ADD MORPH? NO; ATYPICAL LYMPHOCYTE FLAG 80 (0-99); FRAGMENT RBC FLAG 0 (0-99); HEMATOCRIT 31.6 % (40.0-51.0); HEMOGLOBIN 11.4 g/dL (13.7-17.5); IONIZED CALCIUM 1.02 MMOL/L (1.12-1.30); LIPEMIA HEMOLYSIS FLAG 90 (0-99); MEAN CELL HEMOGLOBIN 31.4 pg (27.9-34.1); MEAN CELL HEMOGLOBIN CONCENTR. 36.1 g/dL (32.4-36.7); MEAN CELL VOLUME 87.1 fL (81.5-99.8); MEAN PLATELET VOLUME 10.7 fL (8.7-11.7); PLATELET CLUMPS FLAG 20 (0-99); PLATELET COUNT 172 10^3/uL (150-400); RED BLOOD CELL COUNT 3.63 10^6/uL (4.40-6.38); RED CELL DISTRIBUTION WIDTH 14.4 % (11.5-15.2)
[2016-05-04 04:25] LABS: ADD SCAN? NO; LEFT SHIFT FLG 130 (0-99)
[2016-05-04 04:47] LABS: ALANINE AMINOTRANSFERASE 33 IU/L (21-72); ALBUMIN 2.3 g/dL (3.5-5.0); ALKALINE PHOSPHATASE 140 IU/L (38-126); ANION GAP 15 mEq/L (8-16); ASPARTATE AMINOTRANSFERASE 26 IU/L (17-59); BILIRUBIN,TOTAL 0.9 mg/dL (0.1-1.4); CALCIUM 7.2 mg/dL (8.5-10.4); CARBON DIOXIDE 16 mEq/l (22-31); CHLORIDE 108 mEq/L (97-110); CREATININE 3.3 mg/dL (0.7-1.3); GLOMERULAR FILTRATION RATE 18; GLUCOSE 130 mg/dL (70-100); MAGNESIUM 2.1 mg/dL (1.6-2.3); POTASSIUM 3.7 mEq/L (3.5-5.2); SODIUM 139 mEq/L (134-144)
[2016-05-04 04:53] LABS: PLATELET ESTIMATE ADEQUATE (ADEQ)
[2016-05-04 04:56] LABS: LARGE PLATELETS PRESENT; TOXIC GRANULATION PRESENT
[2016-05-04 05:01] LABS: CREATINE KINASE-MB FRACTION 1.65 ng/mL (0-3.19); TROPONIN I 0.196 ng/mL (0-0.034)
[2016-05-04] MEDS: HEPARIN 5,000 UNIT/0.5 ML SYR SC SCH ×3 (05:18→22:24)
[2016-05-04] MEDS: IPRATROPIUM/ALBUTEROL 3 ML DEYVIAL IH SCH ×4 (05:27→20:55)
--- NOTE | 2016-05-04 09:20 | HOSPPROG ---
Hospitalist Progress Note Assessment/Plan: 75-year-old male who developed a what sounds like a viral illness after a cruise presented with acute renal failure possible pneumonia * acute renal failure * possible ATN * slow improvement * fluid. * nephrology is following * normal kidneys on ultrasound * Acute hypoxic respiratory failure * seems worse today * most likely element of fluid overload a white blood cell count is elevated * will get CT scan of the chest * viral pneumonitis versus superimposed pneumonia * chest x-ray is worse with worsening white blood cell count * continue Zosyn and azithromycin * will get CT scan of the chest * troponin leak * mild and flat * due to acute illness * recent influenza? * appears to have been treated with Tamiflu * history of hypertension * holding medications * DVT prophylaxis * heparin Subjective: Feels very weak. appears more short of breath Objective: Vital Signs Temp Pulse Resp BP Pulse Ox 36.3 C 108 H 24 H 151/71 H 69 L 05/04/16 07:59 05/04/16 07:59 05/04/16 07:59 05/04/16 07:59 05/04/16 07:59 Laboratory Results 05/04/16 04:16 05/04/16 04:16 05/03/16 05/04/16 05/05/16 05:59 05:59 05:59 Intake Total 3478 2850 113 Output Total 1100 1850 Balance 2378 1000 113 - Physical Exam Constitutional: no apparent distress, appears nourished, not in pain Eyes: anicteric sclera, EOMI Ears, Nose, Mouth, Throat: moist mucous membranes, hearing normal, ears appear normal Cardiovascular: regular rate and rhythym, edema ( 1+) Respiratory: reduced air movement, respiratory distress ( moderate), other ( slight rales in the bases) Gastrointestinal: normoactive bowel sounds, soft, non-tender abdomen, no palpable masses Skin: warm Neurologic: AAOx3 Psychiatric: interacting appropriately, not anxious, not encephalopathic, thought process linear ICD10 Worksheet Patient Problems: Problems Problem Status Diagnosed Acute renal failure Acute
--- NOTE | 2016-05-04 11:12 | CT ---
CT Scan of the Chest (Without Contrast) Clinical Indications: Evaluate for worsening pneumonia. Technique: Multidetector helical CT was performed from the superior thoracic inlet to the diaphragm. No intravenous contrast was given. The radiologist manipulated images at the computer workstation. Dose reduction techniques were utilized. Findings: On lung windows, small to moderate bilateral pleural effusions are present, left greater th an right with bilateral lower lobe atelectasis. Patchy multifocal subpleural areas of interstitial fibrosis and honeycombing predominantly involving the upper lobes bilaterally with relative sparing of the bases. Findings suggest underlying idiopathi c pulmonary fibrosis. More focal linear atelectasis is present in the superior segment right lower lo be. No definite acute airspace consolidation identified to suggest pneumonia. Mild lymphadenopathy involves the right paratracheal space, AP window, and subcarinal space within th e mediastinum. Coronary artery calcifications are predominantly located within the LAD. Images of the upper abdomen appear benign. Impression: 1. Bilateral pleural effusions, left greater than right with bilateral lower lobe atelectasis. 2. Subpleural interstitial fibrosis and honeycombing predominantly in the upper lobes bilaterally, pr obable idiopathic pulmonary fibrosis. 3. No definite pneumonia identified. 4. Mild mediastinal lymphadenopathy, indeterminate. 5. Coronary atherosclerosis.
[2016-05-04] MEDS ORDERED: POTASSIUM CL 10 MEQ TAB PO ONE (11:19)
[2016-05-04] MEDS: METOPROLOL SUCCINATE XR 25 MG TAB PO SCH (11:35)
[2016-05-04] MEDS: FOLIC ACID 1 MG TAB PO SCH (11:35)
[2016-05-04] MEDS: OMEGA-3 FATTY ACIDS 1,000 MG CAP PO SCH (11:35)
[2016-05-04] MEDS: AZITHROMYCIN 250 MG TAB PO SCH (11:36)
[2016-05-04] MEDS: CETIRIZINE 10 MG TAB PO SCH (11:36)
[2016-05-04] MEDS: CHOLECALCIFEROL VIT D3 1,000 UNITS TAB PO SCH (11:41)
[2016-05-04] MEDS: PANTOPRAZOLE SODIUM 40 MG TAB PO SCH (13:30)
[2016-05-04] MEDS ORDERED: LACTULOSE 20 GM/30 ML UDCUP PO PRN (16:03)
[2016-05-04] MEDS ORDERED: BISACODYL 10 MG SUPP PR PRN (16:03)
[2016-05-04] MEDS ORDERED: POLYETHYLENE GLYCOL 3350 17 GM PKT PO PRN (16:03)
[2016-05-04] MEDS ORDERED: MAGNESIUM HYDROXIDE 30 ML UDCUP PO PRN (16:03)
--- NOTE | 2016-05-04 16:12 | SOAPPROG ---
SOAP Progress Note Assessment/Plan: Assessment: 1. arf: Creat now decreasing much more rapidly, with increased uo. Overall consistent with ischemic atn from nsaids/arb/diuretic in context of infection. Leukocyturia much less on repeat ua, I would not pursue bx or other eval for ain. 2. pneumonia: on abx, has effusions on CT. Ivf stopped yesterday, uo increased so he may be able to mobilize this on his own. Could give lasix prn if resp status worsens. 3. htn: arb on hold 4. hypoCa: replaced, improved, pth pending Plan: 05/03/16 18:29 05/03/16 18:35 05/03/16 18:36 05/04/16 16:09 Subjective: Transiently increased O2 req but now improved. s/p CT chest earlier this am. Objective: Vital Signs Temp Pulse Resp BP Pulse Ox 37.1 C 107 H 20 152/82 H 91 L 05/04/16 12:00 05/04/16 12:00 05/04/16 12:00 05/04/16 12:00 05/04/16 12:00 Microbiology 05/02/16 00:26 Urine Culture - Final Urine,Clean Catch Laboratory Results 05/04/16 04:16 05/04/16 04:16 05/03/16 05/04/16 05/05/16 05:59 05:59 05:59 Intake Total 3478 2850 113 Output Total 1100 1850 Balance 2378 1000 113 Physical Exam - Physical Exam General Appearance: no apparent distress Respiratory: decreased breath sounds Cardiac/Chest: regular rate, rhythm Abdomen: non-tender, soft Extremities: swelling (+LE edema) ICD10 Worksheet Patient Problems: Problems Problem Status Diagnosed Acute renal failure Acute
[2016-05-04 19:37] LABS: POTASSIUM 3.5 mEq/L (3.5-5.2)
[2016-05-04] MEDS: SENNOSIDES/DOCUSATE SODIUM TAB PO SCH (22:24)
[2016-05-05] MEDS: PIPERACILLIN/TAZO 2.25 GM/DEX 50 ML IV SCH ×4 (01:00→17:47)
[2016-05-05] MEDS: HEPARIN 5,000 UNIT/0.5 ML SYR SC SCH ×3 (05:07→21:52)
[2016-05-05] MEDS: IPRATROPIUM/ALBUTEROL 3 ML DEYVIAL IH SCH ×4 (05:17→21:26)
[2016-05-05 06:17] LABS: ALBUMIN 2.2 g/dL (3.5-5.0); ANION GAP 14 mEq/L (8-16); CALCIUM 7.7 mg/dL (8.5-10.4); CARBON DIOXIDE 16 mEq/l (22-31); CHLORIDE 106 mEq/L (97-110); CREATININE 2.6 mg/dL (0.7-1.3); GLOMERULAR FILTRATION RATE 24; GLUCOSE 115 mg/dL (70-100); MAGNESIUM 2.2 mg/dL (1.6-2.3); POTASSIUM 3.5 mEq/L (3.5-5.2); SODIUM 136 mEq/L (134-144)
[2016-05-05] MEDS ORDERED: POTASSIUM CL 10 MEQ TAB PO ONE (06:27)
[2016-05-05] MEDS: CETIRIZINE 10 MG TAB PO SCH (08:51)
[2016-05-05] MEDS: CHOLECALCIFEROL VIT D3 1,000 UNITS TAB PO SCH (08:51)
[2016-05-05] MEDS: PANTOPRAZOLE SODIUM 40 MG TAB PO SCH (08:51)
[2016-05-05] MEDS: METOPROLOL SUCCINATE XR 25 MG TAB PO SCH (08:51)
[2016-05-05] MEDS: OMEGA-3 FATTY ACIDS 1,000 MG CAP PO SCH (08:52)
[2016-05-05] MEDS: AZITHROMYCIN 250 MG TAB PO SCH (08:52)
[2016-05-05] MEDS: FOLIC ACID 1 MG TAB PO SCH (08:52)
[2016-05-05] MEDS: SENNOSIDES/DOCUSATE SODIUM TAB PO SCH ×2 (08:52→21:52)
[2016-05-05] MEDS ORDERED: POTASSIUM CL 20 MEQ TAB ONE (09:07)
[2016-05-05] MEDS ORDERED: POTASSIUM CL 10 MEQ TAB ONE (10:38)
[2016-05-05] MEDS: ACETAMINOPHEN 325 MG TAB PO PRN (10:52)
--- NOTE | 2016-05-05 11:06 | SOAPPROG ---
SOAP Progress Note Assessment/Plan: Assessment: 1. XIMENA Due to hemodynamics, NSAIDs. Improving. 2. Rai Extremely weak. Leave in today, will assess removing tomorrow. 3. Pulmonary status appears to be improving Plan: 05/05/16 11:04 Subjective: Doing better Objective: Vital Signs Temp Pulse Resp BP Pulse Ox 36.6 C 96 22 H 150/92 H 93 05/05/16 08:00 05/05/16 08:15 05/05/16 08:00 05/05/16 08:15 05/05/16 08:15 Microbiology 05/02/16 00:26 Urine Culture - Final Urine,Clean Catch Laboratory Results 05/04/16 04:16 05/05/16 05:00 05/04/16 05/05/16 05/06/16 05:59 05:59 05:59 Intake Total 2850 1763 140 Output Total 1850 1950 Balance 1000 -187 140 Physical Exam - Physical Exam General Appearance: no apparent distress Respiratory: lungs clear Cardiac/Chest: regular rate, rhythm Male Genitalia: other (rai) Extremities: pedal edema ICD10 Worksheet Patient Problems: Problems Problem Status Diagnosed Acute renal failure Acute
--- NOTE | 2016-05-05 15:56 | HOSPPROG ---
Hospitalist Progress Note Assessment/Plan: 75 yo M with recent influenza presenting with dean and generalized weakness # dean: with renal following and felt to be 2/2 hemodynamics and nsaids. Continues to improve. # pna: with recent influenza and presenting with what appears to be superimposed pneumonia and likely viral pneumonitis, being treated on zosyn. CT personally reviewed and showing bilateral effusions and atelectasis. # volume overload: suspect decompensated diastolic heart failure with ble edema and bilateral effusions noted on imaging. Would likely benefit from lasix when able related to dean--will discuss with renal, if creatinine continues to improve would start lasix in am # acute on chronic diastolic heart failure: as above, EF of 75% and no other acute findings on echo # elevated troponin: essentially flat but elevated to peak of 0.3, as above, cardiology has evaluated patient and placed brief progress note--sounds as if they did not plan any further w/u or evaluation # leukocytosis: continues to increase though does not have other evidence of worsening infectious process. Continue to trend. Will repeat cultures if febrile. # generalized weakness: patient with inability to ambulate and significant fatigue in setting of above, seems to be a subacute decline however now patient unable to care for himself, living at home with a chronically ill as well. PT/OT/CM involved, will need snf. # dispo: IP status, will need snf Patient new to my care. Old records reviewed and summarized as above. Care plan reviewed with CM/renal . Subjective: patient complaining about being in chair x hours, still very fatigued and weak, he is not able to walk, he feels his breathing is somewhat better Objective: Vital Signs Temp Pulse Resp BP Pulse Ox 36.6 C 85 18 127/71 H 94 05/05/16 15:45 05/05/16 15:45 05/05/16 15:45 05/05/16 15:45 05/05/16 15:45 Microbiology 05/02/16 00:26 Urine Culture - Final Urine,Clean Catch Laboratory Results 05/04/16 04:16 05/05/16 05:00 05/04/16 05/05/16 05/06/16 05:59 05:59 05:59 Intake Total 2850 1763 140 Output Total 1850 1950 550 Balance 1000 -187 -410 chronically ill appearing, nad anicteric op clear rrr distant no mrg 2+ pitting edema dec bs at bases bilaterally soft nt nd 2+ pitting edema ble warm dry well perfused oriented appropriate - Time Spent With Patient Time Spent with Patient: greater than 35 minutes Time Spent with Patient: Greater than 35 minutes spent on this patients care, greater than 50% of time spent counseling, educating, and coordinating care regarding the above mentioned plan. ICD10 Worksheet Patient Problems: Problems Problem Status Diagnosed Acute renal failure Acute
[2016-05-05 19:09] LABS: POTASSIUM 3.9 mEq/L (3.5-5.2)
[2016-05-06] MEDS: PIPERACILLIN/TAZO 2.25 GM/DEX 50 ML IV SCH ×3 (00:58→11:38)
[2016-05-06 06:19] LABS: MAGNESIUM 1.9 mg/dL (1.6-2.3); POTASSIUM 3.7 mEq/L (3.5-5.2)
[2016-05-06 06:54] LABS: % IMMATURE GRANULYOCYTES 1.4 % (0.0-1.1); ABSOLUTE IMMATURE GRANULOCYTES 0.19 10^3/uL (0.00-0.10); ADD DIFF? NO; ADD MORPH? NO; ADD SCAN? NO; ATYPICAL LYMPHOCYTE FLAG 60 (0-99); FRAGMENT RBC FLAG 10 (0-99); HEMATOCRIT 30.9 % (40.0-51.0); HEMOGLOBIN 10.9 g/dL (13.7-17.5); LEFT SHIFT FLG 30 (0-99); LIPEMIA HEMOLYSIS FLAG 90 (0-99); MEAN CELL HEMOGLOBIN 30.4 pg (27.9-34.1); MEAN CELL HEMOGLOBIN CONCENTR. 35.3 g/dL (32.4-36.7); MEAN CELL VOLUME 86.1 fL (81.5-99.8); MEAN PLATELET VOLUME 11.3 fL (8.7-11.7); PLATELET CLUMPS FLAG 0 (0-99); PLATELET COUNT 202 10^3/uL (150-400); RED BLOOD CELL COUNT 3.59 10^6/uL (4.40-6.38); RED CELL DISTRIBUTION WIDTH 14.4 % (11.5-15.2)
[2016-05-06] MEDS: IPRATROPIUM/ALBUTEROL 3 ML DEYVIAL IH SCH ×4 (07:53→21:53)
[2016-05-06] MEDS: HEPARIN 5,000 UNIT/0.5 ML SYR SC SCH ×3 (07:53→21:59)
[2016-05-06] MEDS ORDERED: POTASSIUM CL 10 MEQ TAB PO ONE ×2 (07:56→19:24)
[2016-05-06 07:57] LABS: ALBUMIN 2.3 g/dL (3.5-5.0); ANION GAP 14 mEq/L (8-16); CALCIUM 8.1 mg/dL (8.5-10.4); CARBON DIOXIDE 16 mEq/l (22-31); CHLORIDE 108 mEq/L (97-110); CREATININE 1.9 mg/dL (0.7-1.3); GLOMERULAR FILTRATION RATE 35; GLUCOSE 107 mg/dL (70-100); SODIUM 138 mEq/L (134-144)
[2016-05-06] MEDS: SENNOSIDES/DOCUSATE SODIUM TAB PO SCH ×2 (08:43→22:06)
[2016-05-06] MEDS: FOLIC ACID 1 MG TAB PO SCH (08:43)
[2016-05-06] MEDS: METOPROLOL SUCCINATE XR 25 MG TAB PO SCH (08:44)
[2016-05-06] MEDS: PANTOPRAZOLE SODIUM 40 MG TAB PO SCH (08:44)
[2016-05-06] MEDS: CHOLECALCIFEROL VIT D3 1,000 UNITS TAB PO SCH (08:44)
[2016-05-06] MEDS: CETIRIZINE 10 MG TAB PO SCH (08:45)
[2016-05-06] MEDS: AZITHROMYCIN 250 MG TAB PO SCH (08:45)
[2016-05-06] MEDS: OMEGA-3 FATTY ACIDS 1,000 MG CAP PO SCH (08:47)
--- NOTE | 2016-05-06 09:36 | SOAPPROG ---
SOAP Progress Note Assessment/Plan: Assessment:Plan: ARF-in setting of lasix, losartan, diclofenac, diarrhea and poor PO intake -urine studies with urine Na of 22 -urine protein on dipstick resolved -us of kidneys unremarkable -discontinue rai Muscle aches-CPK normal 05/06/16 09:36 Subjective: muscle aches and weakness Objective: Vital Signs Temp Pulse Resp BP Pulse Ox 36.6 C 92 20 150/73 H 90 L 05/06/16 08:00 05/06/16 08:00 05/06/16 08:00 05/06/16 08:00 05/06/16 08:00 Laboratory Results 05/06/16 04:57 05/06/16 04:57 05/05/16 05/06/16 05/07/16 05:59 05:59 05:59 Intake Total 1763 140 Output Total 1950 1200 Balance -187 -1060 Physical Exam - Physical Exam General Appearance: alert, moderate distress EENT: normal ENT inspection Neck: normal inspection Respiratory: decreased breath sounds, crackles, rhonchi Cardiac/Chest: regular rate, rhythm Abdomen: normal bowel sounds, non-tender, distended Extremities: other (unchanged) ICD10 Worksheet Patient Problems: Problems Problem Status Onset Acute renal failure Acute
[2016-05-06] MEDS: ACETAMINOPHEN 325 MG TAB PO PRN (11:03)
--- NOTE | 2016-05-06 14:02 | HOSPPROG ---
Hospitalist Progress Note Assessment/Plan: 75 yo M with recent influenza presenting with dean and generalized weakness # dean: with renal following and felt to be 2/2 hemodynamics and nsaids. Continues to improve, avoiding nephrotoxins and renally dosing meds. Expect it will continue to improve with time. Mcneil out. # pna: with recent influenza and presenting with what appears to be superimposed pneumonia and likely viral pneumonitis, initially on zosyn and will switch to augmentin. # generalized weakness: patient very weak, very reluctant to move much, appears to be multifactorial without any one clear issue going on at the moment. Reviewed with patients daughter, he will need to dc to snf given his inability to take care of himself, his is also chronically ill. # volume overload: suspect decompensated diastolic heart failure with ble edema and bilateral effusions noted on imaging. would benefit from lasix when can tolerate from a renal standpoint # acute on chronic diastolic heart failure: as above, EF of 75% and no other acute findings on echo # elevated troponin: essentially flat but elevated to peak of 0.3, as above, cardiology has evaluated patient and do not plan further IP w/u at this time so long as patient remains asymptomatic. # leukocytosis: now treding down though still elevated. Continue to trend. Will repeat cultures if febrile. # dispo: IP status, will need snf Care plan reviewed with CM/renal . Further hx obtained from patients daughter Sue and his over the phone. Subjective: no significant overnight events, patient remains very somnolent and feeling generally weak Objective: Vital Signs Temp Pulse Resp BP Pulse Ox 36.7 C 86 20 125/61 H 95 05/06/16 12:00 05/06/16 12:00 05/06/16 12:00 05/06/16 12:00 05/06/16 12:00 Laboratory Results 05/06/16 04:57 05/06/16 04:57 05/05/16 05/06/16 05/07/16 05:59 05:59 05:59 Intake Total 1763 140 Output Total 1950 1200 400 Balance -187 -1060 -400 chronically ill appearing, nad anicteric op clear rrr distant no mrg 2+ pitting edema dec bs at bases bilaterally soft nt nd 2+ pitting edema ble warm dry well perfused oriented appropriate ICD10 Worksheet Patient Problems: Problems Problem Status Onset Acute renal failure Acute
[2016-05-06 19:15] LABS: POTASSIUM 3.5 mEq/L (3.5-5.2)
[2016-05-06] MEDS ORDERED: AMOXICILLIN/CLAVULANATE POT 875/125 MG TAB PO SCH (21:00)
[2016-05-06] MEDS ORDERED: POTASSIUM CL 20 MEQ TAB ONE (21:57)
[2016-05-06] MEDS: POTASSIUM CL 10 MEQ TAB PO ONE ×2 (22:10→22:22)
[2016-05-06] MEDS ORDERED: POTASSIUM CL 10 MEQ TAB ONE (22:15)
[2016-05-06] MEDS ORDERED: POTASSIUM CL 20 MEQ/15 ML UDCUP ONE (22:20)
[2016-05-06] MEDS ORDERED: POTASSIUM CL 20 MEQ/15 ML UDCUP PO ONE (22:30)
[2016-05-07] MEDS: IPRATROPIUM/ALBUTEROL 3 ML DEYVIAL IH SCH ×2 (03:09→11:49)
[2016-05-07 05:51] LABS: % IMMATURE GRANULYOCYTES 1.6 % (0.0-1.1); ABSOLUTE IMMATURE GRANULOCYTES 0.19 10^3/uL (0.00-0.10); ADD DIFF? NO; ADD MORPH? NO; ADD SCAN? NO; ATYPICAL LYMPHOCYTE FLAG 80 (0-99); FRAGMENT RBC FLAG 0 (0-99); HEMATOCRIT 30.4 % (40.0-51.0); HEMOGLOBIN 10.6 g/dL (13.7-17.5); LEFT SHIFT FLG 30 (0-99); LIPEMIA HEMOLYSIS FLAG 90 (0-99); MEAN CELL HEMOGLOBIN 30.6 pg (27.9-34.1); MEAN CELL HEMOGLOBIN CONCENTR. 34.9 g/dL (32.4-36.7); MEAN CELL VOLUME 87.9 fL (81.5-99.8); MEAN PLATELET VOLUME 11.6 fL (8.7-11.7); PLATELET CLUMPS FLAG 10 (0-99); PLATELET COUNT 228 10^3/uL (150-400); RED BLOOD CELL COUNT 3.46 10^6/uL (4.40-6.38); RED CELL DISTRIBUTION WIDTH 14.6 % (11.5-15.2)
[2016-05-07] MEDS: HEPARIN 5,000 UNIT/0.5 ML SYR SC SCH ×2 (05:51→14:42)
[2016-05-07 06:01] LABS: ALBUMIN 2.4 g/dL (3.5-5.0); ANION GAP 10 mEq/L (8-16); CALCIUM 8.6 mg/dL (8.5-10.4); CARBON DIOXIDE 17 mEq/l (22-31); CHLORIDE 111 mEq/L (97-110); CREATININE 1.3 mg/dL (0.7-1.3); GLOMERULAR FILTRATION RATE 54; GLUCOSE 116 mg/dL (70-100); MAGNESIUM 1.9 mg/dL (1.6-2.3); POTASSIUM 3.7 mEq/L (3.5-5.2); SODIUM 138 mEq/L (134-144)
[2016-05-07] MEDS ORDERED: POTASSIUM CL 10 MEQ TAB PO ONE (08:49)
[2016-05-07 09:00] VITALS: RESP 24
[2016-05-07] MEDS ORDERED: POTASSIUM CL 20 MEQ/15 ML UDCUP PO ONE (09:00)
[2016-05-07] MEDS ORDERED: AMOX TR/K CLAV 400 MG/5 ML 100ML BULK BTL PO SCH (09:00)
[2016-05-07] MEDS: METOPROLOL SUCCINATE XR 25 MG TAB PO SCH (10:12)
[2016-05-07] MEDS: CHOLECALCIFEROL VIT D3 1,000 UNITS TAB PO SCH (10:13)
[2016-05-07] MEDS: PANTOPRAZOLE SODIUM 40 MG TAB PO SCH (10:13)
[2016-05-07] MEDS: CETIRIZINE 10 MG TAB PO SCH (10:15)
[2016-05-07] MEDS: AZITHROMYCIN 250 MG TAB PO SCH (10:15)
[2016-05-07] MEDS: FOLIC ACID 1 MG TAB PO SCH (10:19)
[2016-05-07] MEDS: SENNOSIDES/DOCUSATE SODIUM TAB PO SCH (10:20)
[2016-05-07] MEDS: OMEGA-3 FATTY ACIDS 1,000 MG CAP PO SCH (10:20)
--- NOTE | 2016-05-07 10:43 | SOAPPROG ---
SOAP Progress Note Assessment/Plan: Assessment. 1. XIMENA. Likely ATN related to acute illness, NSAIDs, ARB, lasix. B/l creat 1.0. Back down to 1.3 today with good UOP. Would continue to hold all of above. Left card, should f/u with us several weeks after discharge. Will sign off. 2. Pneumonia. Possibly viral. Daughter mentions recent travel to [facility] on a cruise prior to illness. Continue abx. Possible IPF on CT scan. Appears to have some excess volume. Can give lasix prn. Plan: 05/07/16 10:40 05/07/16 10:42 05/07/16 10:47 05/07/16 10:48 05/07/16 10:50 05/07/16 10:52 Subjective: No events o/n per RN. Pt does not have specific complaints. Objective: Vital Signs Temp Pulse Resp BP Pulse Ox 37.4 C 95 24 H 157/63 H 93 05/07/16 08:00 05/07/16 08:00 05/07/16 08:00 05/07/16 08:00 05/07/16 08:00 Microbiology 05/01/16 19:20 Blood Culture - Final Blood 05/01/16 18:55 Blood Culture - Final Blood Laboratory Results 05/07/16 05:06 05/07/16 05:06 05/06/16 05/07/16 05/08/16 05:59 05:59 05:59 Intake Total 140 213 Output Total 1200 750 300 Balance -1060 -537 -300 Tired. Mildly increased wob. Difficult to understand. RRR, no m/g/r Coarse breath sounds in R base Abdomen distended, nontender, tympanitic 1-2+ pitting LE edema ICD10 Worksheet Patient Problems: Problems Problem Status Onset Acute renal failure Acute
--- NOTE | 2016-05-07 11:51 | PDIAF ---
- Diagnosis Code Status: Full Code - Medication Management Discharge Medications: Medications to Continue on Transfer Atorvastatin Calcium [Lipitor 40 mg (*)] 40 mg PO DAILY 05/01/16 [Last Taken 11/06] Cholecalciferol Vit D3 [Vitamin D3 (*)] 1,000 units PO DAILY 05/01/16 [Last Taken 04/30/16] FOLIC ACID 0.4 mg PO DAILY 05/01/16 [Last Taken 04/30/16] Loratadine [Claritin] 10 mg PO DAILY 05/01/16 [Last Taken 04/30/16] Metoprolol Succinate Xr [Toprol Xl 25 mg (*)] 25 mg PO DAILY 05/01/16 [Last Taken 04/30/16] [place]-3 Fatty Acids [Fish Oil 1000 mg (*)] 1,000 mg PO DAILY 05/01/16 [Last Taken 04/30/16] Omeprazole 20 mg PO DAILY 05/01/16 [Last Taken 04/30/16] Acetaminophen [Tylenol 325mg (*)] 650 mg PO Q4HRS PRN #0 tab 05/07/16 [Last Taken Unknown] Amox Tr/Potassium Clavulanate [Augmentin 400MG/5ML (*)] 875 mg PO BID #10 bottle 05/07/16 [Last Taken Unknown] Furosemide [Lasix 20 MG (*)] 20 mg PO DAILY #0 tab 05/07/16 [Last Taken Unknown] Ipratropium/Albuterol [Duoneb (*)] 3 ml IH QID #0 deyvial 05/07/16 [Last Taken Unknown] Metoclopramide [Reglan 10 mg tab (*)] 5 mg PO Q6HRS PRN #0 tab 05/07/16 [Last Taken Unknown] Polyethylene Glycol 3350 [Miralax 17 gm (*)] 17 gm PO DAILY PRN #0 pkt 05/07/16 [Last Taken Unknown] Sennosides/Docusate Sodium [Senokot-S] 1 - 2 tab PO BID #0 tab 05/07/16 [Last Taken Unknown] Discharge Medications: Refer to the Discharge Home Medication list for PRN reason. - Orders Services needed: Registered Nurse, Certified Therapy Teacher, Physical Therapy, Occupational Therapy, Speech Language Pathologist Diet Texture: Dysphagia 2 - Mechanically Altered - Chopped, Ground, Thin Liquids , Meds Crushed in Puree Weigh Patient: daily Additional: We have been holding some BP meds (amlodipine and losartan) because Mr. Dominguez has had low blood pressure here. These may need to be resumed in the future. - Labs/Radiology BMP Date: 05/09/16 CBC Date: 05/09/16 - Follow Up Care Current Providers and Referrals: Shorty Tolliver MD [Primary Care Provider] - As per Instructions
--- NOTE | 2016-05-07 11:51 | PDDCSUM ---
Discharge Summary Discharge Summary: Dates of service: 05/01-05/07/16 Discharge diagnosis: # dean # pneumonia # influenza # generalized weakness and deconditioning # volume overload # dysphagia # acute on chronic diastolic heart failure # elevated troponin Consultation: cardiology, nephrology Procedures performed: echocardiogram, videofluoro swallow eval, chest ct Hospital course by problem: # dean: with renal following and felt to be 2/2 hemodynamics and nsaids. Nearly back to baseline currently, expect will full resolve # pna: with recent influenza and presenting with what appears to be superimposed pneumonia and likely viral pneumonitis, initially on zosyn and will switch to augmentin. Clinically improved # generalized weakness: patient very weak, very reluctant to move much, multifactorial in setting of prolonged illness as above. Has been improving and working with pt/ot, will dc to snf. # volume overload: suspect decompensated diastolic heart failure with ble edema and bilateral effusions noted on imaging. will resume low dose lasix # acute on chronic diastolic heart failure: as above, EF of 75% and no other acute findings on echo # elevated troponin: without trend upwards, echo without wall motion abnormalities, cardiology evaluated # dysphagia: s/p ingredient handler and VFSS, recommended altered texture diet/dysphagia diet # leukocytosis: now treding down though still elevated. Continue to trend. Will repeat cultures if febrile. dc to snf Meds: see EHR f/u items include follow up volume status, f/u pulmonary status f/u with pcp, Dr. Quinonez > 35 min spent in dc of patient more than half in face to face care and coordination of care
[2016-05-07 12:05] VITALS: BP 146/89; PULSE 107; TEMP 97.4; O2SAT 94
== END 2016-05-07 15:34 | DRG 682 ==
LOC: EDUNIT# → F3E 18:02
PROVIDERS: ADMIT Family Medicine; ATTEND Family Medicine
DX: N17.9 Acute kidney failure, unspecified (principal); J11.08 Influenza due to unidentified influenza virus with specified pneumonia; I50.33 Acute on chronic diastolic (congestive) heart failure; I11.0 Hypertensive heart disease with heart failure; R13.10 Dysphagia, unspecified; K21.9 Gastro-esophageal reflux disease without esophagitis; E86.0 Dehydration; E87.6 Hypokalemia; E83.42 Hypomagnesemia; E78.5 Hyperlipidemia, unspecified; T50.905A Adverse effect of unspecified drugs, medicaments and biological substances, initial encounter; T50.2X5A Adverse effect of carbonic-anhydrase inhibitors, benzothiadiazides and other diuretics, initial encounter; Z96.612 Presence of left artificial shoulder joint
CPT/HCPCS: 92610-GN; 92611-GN; 97116-GP; 97162-GP; 97166-GO; 97530-GO; 97530-GP; 97535-GO; G8978-GP-CM; G8979-GP-CK; G8987-GO-CL; G8988-GO-CJ; G8996-GN-CI; G8997-GN-CI; G8998-GN-CI; J0456; J0610; J0696; J2543; J3475

== ENCOUNTER → 2016-07-17 | Outpatient (CLI) | payer OTHER, MEDICARE | LOC: FIMAGING 12:19 | PROVIDERS: ATTEND Psychiatry & Neurology Neurology | DX: I63.9 Cerebral infarction, unspecified (principal) ==

== ENCOUNTER → 2016-07-23 | Outpatient (CLI) | payer OTHER, MEDICARE ==
--- NOTE | 2016-07-24 11:11 | CPEEG ---
[f rep st] ELECTROENCEPHALOGRAM DATE OF STUDY: 07/23/2016 INTERPRETATION: Normal EEG during wakefulness and drowsiness. There were no potentially epileptoge heather abnormalities present during the recording. REPORT: This EEG contains 9 Hz alpha activity to the posterior head regions. The patient's backgro und activity was normal and symmetric during maximal alertness. There was no abnormal activation at rest or with photic stimulation. The patient became intermittently drowsy throughout the recording . With drowsiness, there was some mild bitemporal theta activity, which is a normal drowsy variant. There was no abnormal activation during drowsiness or during times of arousal. /[id number]/MODL
== END ==
LOC: FCPNEURO 10:15
PROVIDERS: ATTEND Psychiatry & Neurology Neurology
DX: R41.0 Disorientation, unspecified (principal)

== ENCOUNTER 2016-07-25 11:41 | Inpatient (IN) | payer OTHER, MEDICARE ==
--- NOTE | 2016-07-25 12:22 | EDPHY ---
H & P Time Seen by Provider: 07/25/16 12:18 HPI/ROS: CHIEF COMPLAINT: Bilateral leg weakness. HISTORY OF PRESENT ILLNESS: The patient is a 75-year-old male status post CVA in April who presents with bilateral leg weakness that has been worsening significantly over the past 4 days. He is now unable to pull himself up from sitting or walk without assistance. He has also had waxing and waning pain in his knees and hips. In April 2016 he was admitted for influenza and pneumonia. At that time he had bilateral lower extremity weakness, which subsequently resolved. He was subsequently admitted for transient confusion. MRI at that time demonstrated a subacute CVA. He denies cough, congestion, vomiting, diarrhea, fever, incontinence. REVIEW OF SYSTEMS: A complete 10-point review of systems was performed and is negative except for those items mentioned in the HPI. Past Medical/Surgical History: Hypertension, GERD, shoulder surgeries, CVA, L shoulder replacement, acute kidney failure. Social History: Here with family. Smoking Status: Never smoked Physical Exam: General Appearance: Alert, pleasant and smiling Eyes: Pupils equal and round, no conjunctival pallor or injection ENT, Mouth: Mucous membranes moist Neck: Normal inspection Respiratory: Lungs are clear to auscultation Cardiovascular: Regular rate and rhythm Gastrointestinal: Abdomen is soft and non-tender Neurological: A&O, 5-/5 strength in bilateral lower extremities, 2+ patellar reflexes, sensory intact to light touch Skin: Warm and dry, no rash Extremities: Nontender Psychiatric: Mood and affect normal Constitutional: Initial Vital Signs Temperature (C) 36.5 C 07/25/16 11:47 Heart Rate 91 07/25/16 11:47 Respiratory Rate 18 07/25/16 11:47 Blood Pressure 144/65 H 07/25/16 11:47 O2 Sat (%) 94 07/25/16 11:47 O2 Delivery Mode Room Air Allergies/Adverse Reactions: No Known Allergies Allergy (Verified 07/25/16 11:46) Home Medications: Medication Instructions Recorded Aspirin EC [Aspirin EC 81 mg (*)] 81 mg PO HS 07/25/16 Atorvastatin Calcium [Lipitor 40 40 mg PO HS 07/25/16 mg (*)] Cholecalciferol Vit D3 [Vitamin D3 2,000 units PO DAILY 07/25/16 (*)] Cyanocobalamin [Vitamin B12 (*)] 1,000 mcg PO DAILY 07/25/16 Cyanocobalamin [Vitamin B12 1 ml IM TU 07/25/16 1000MCG/ML (*)] Docusate Sodium [Colace 100 MG (*)] 100 mg PO DAILY PRN 07/25/16 Herbals/Supplements -Info Only 1 ea PO DAILY 07/25/16 Loratadine 10 mg PO DAILY 07/25/16 Magnesium Oxide [Magnesium Oxide 1,000 mg PO DAILY 07/25/16 500 mg] Metoprolol Succinate Xr [Toprol Xl 25 mg PO DAILY 07/25/16 25 mg (*)] [place]-3 Fatty Acids [Fish Oil 1000 1,200 mg PO DAILY 07/25/16 mg (*)] Ranitidine HCl 300 mg PO BID PRN 07/25/16 amLODIPine BESYLATE [Norvasc 10 mg 10 mg PO DAILY 07/25/16 (*)] traMADol [Ultram 50 mg (*)] 50 mg PO BID PRN 07/25/16 Medical Decision Making - Diagnostics EKG Interpretation: EKG interpreted by me reveals normal sinus rhythm, normal axis, normal intervals , ST and T segments normal. Interpretation: normal EKG ED Course/Re-evaluation: This patient presents with bilateral lower extremity weakness. No evidence of acute CVA, injury or acute illness. He has no low back pain, though possibly could still have cauda equina syndrome. MRI of the lumbar spine ordered. An IV was established and labs ordered. EKG ordered. Laboratory studies unremarkable. Neurologic exam remains unchanged. No evidence of Guillain- Farrell syndrome, as reflexes are normal. The etiology of the bilateral leg weakness is unclear and will need further evaluation. 1308: Consulted with Felicitas Boyd, hospitalist. She accepts admission for Dr. Chen. Differential Diagnosis: Differential diagnosis includes though is not limited to cauda equina syndrome, hyponatremia, cardiac dysrhythmia, CVA, TIA, GI bleed, sepsis, hypoglycemia. - Data Points Medications Given: Discontinued Medications Sodium Chloride (Ns) 1,000 mls @ 75 mls/hr IV CONT ZARINA Stop: 07/26/16 03:49 Last Admin: 07/25/16 15:52 Dose: 1,000 mls Departure - Departure Disposition: [facility] Inpatient Acute Clinical Impression: Leg weakness, bilateral Condition: Fair Report Scribed for: Sue Reyes Report Scribed by: Nick Whiteside Date of Report: 07/25/16 Time of Report: 12:21 Physician Review and Approval Statement: 07/25/16 12:22 Portions of this note were transcribed by a medical csr. I personally performed a history, physical exam, medical decision making, and confirmed accuracy of information the transcribed note.
--- NOTE | 2016-07-25 13:36 | CPEKG ---
Heart Rate: 63 RR Interval: 952 P-R Interval: 168 QRSD Interval: 100 QT Interval: 392 QTC Interval: 402 P [place]: 54 QRS [place]: 11 T Wave [place]: 23 EKG Severity - NORMAL ECG - EKG Impression: SINUS RHYTHM Electronically Signed By: Sue Reyes 25-Jul-2016 15:24:25
[2016-07-25 13:49] LABS: % IMMATURE GRANULYOCYTES 0.6 % (0.0-1.1); ABSOLUTE IMMATURE GRANULOCYTES 0.06 10^3/uL (0.00-0.10); ADD DIFF? NO; ADD MORPH? NO; ADD SCAN? NO; ATYPICAL LYMPHOCYTE FLAG 0 (0-99); FRAGMENT RBC FLAG 10 (0-99); HEMATOCRIT 35.9 % (40.0-51.0); HEMOGLOBIN 12.1 g/dL (13.7-17.5); LEFT SHIFT FLG 10 (0-99); LIPEMIA HEMOLYSIS FLAG 80 (0-99); MEAN CELL HEMOGLOBIN 28.5 pg (27.9-34.1); MEAN CELL HEMOGLOBIN CONCENTR. 33.7 g/dL (32.4-36.7); MEAN CELL VOLUME 84.7 fL (81.5-99.8); MEAN PLATELET VOLUME 9.6 fL (8.7-11.7); PLATELET CLUMPS FLAG 10 (0-99); PLATELET COUNT 346 10^3/uL (150-400); RED BLOOD CELL COUNT 4.24 10^6/uL (4.40-6.38); RED CELL DISTRIBUTION WIDTH 16.1 % (11.5-15.2)
[2016-07-25 14:11] LABS: ANION GAP 12 mEq/L (8-16); CARBON DIOXIDE 22 mEq/l (22-31); CHLORIDE 93 mEq/L (97-110); GLOMERULAR FILTRATION RATE > 60; GLUCOSE 113 mg/dL (70-100); POTASSIUM 5.5 mEq/L (3.5-5.2); SODIUM 127 mEq/L (134-144)
[2016-07-25 14:23] LABS: TROPONIN I < 0.012 ng/mL (0-0.034)
[2016-07-25] MEDS ORDERED: ONDANSETRON DISINTEGRATING 4 MG TAB PO PRN (14:27)
[2016-07-25] MEDS ORDERED: ACETAMINOPHEN 325 MG TAB PO PRN (14:27)
[2016-07-25] MEDS ORDERED: ONDANSETRON 4 MG/2 ML VIAL IVP PRN (14:27)
[2016-07-25] MEDS ORDERED: NS 1,000 ML IV SCH (14:30)
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
[2016-07-25] MEDS: HYDROCODONE/APAP 5/325 TAB PO PRN ×2 (16:45→21:25)
[2016-07-25 17:59] LABS: COLOR YELLOW; LEUKOCYTE ESTERASE,URINE NEGATIVE (NEGATIVE); NITRITE,URINE NEGATIVE (NEGATIVE)
[2016-07-26] MEDS: HYDROCODONE/APAP 5/325 TAB PO PRN ×4 (05:19→21:44)
[2016-07-26 05:32] LABS: % IMMATURE GRANULYOCYTES 0.4 % (0.0-1.1); ABSOLUTE IMMATURE GRANULOCYTES 0.03 10^3/uL (0.00-0.10); ADD DIFF? NO; ADD MORPH? NO; ADD SCAN? NO; ATYPICAL LYMPHOCYTE FLAG 30 (0-99); FRAGMENT RBC FLAG 0 (0-99); HEMATOCRIT 33.2 % (40.0-51.0); HEMOGLOBIN 11.2 g/dL (13.7-17.5); LEFT SHIFT FLG 0 (0-99); LIPEMIA HEMOLYSIS FLAG 80 (0-99); MEAN CELL HEMOGLOBIN 29.1 pg (27.9-34.1); MEAN CELL HEMOGLOBIN CONCENTR. 33.7 g/dL (32.4-36.7); MEAN CELL VOLUME 86.2 fL (81.5-99.8); MEAN PLATELET VOLUME 9.6 fL (8.7-11.7); PLATELET CLUMPS FLAG 20 (0-99); PLATELET COUNT 287 10^3/uL (150-400); RED BLOOD CELL COUNT 3.85 10^6/uL (4.40-6.38)
[2016-07-26 05:40] LABS: ALANINE AMINOTRANSFERASE 23 IU/L (21-72); ALBUMIN 3.4 g/dL (3.5-5.0); ALKALINE PHOSPHATASE 116 IU/L (38-126); ANION GAP 10 mEq/L (8-16); ASPARTATE AMINOTRANSFERASE 21 IU/L (17-59); BILIRUBIN,TOTAL 1.2 mg/dL (0.1-1.4); CALCIUM 8.9 mg/dL (8.5-10.4); CARBON DIOXIDE 20 mEq/l (22-31); CHLORIDE 98 mEq/L (97-110); CREATININE 0.9 mg/dL (0.7-1.3); GLOMERULAR FILTRATION RATE > 60; GLUCOSE 104 mg/dL (70-100); POTASSIUM 4.9 mEq/L (3.5-5.2); SODIUM 128 mEq/L (134-144); TOTAL PROTEIN 7.1 g/dL (6.3-8.2)
[2016-07-26] MEDS ORDERED: traMADol 50 MG TAB PO PRN (09:48)
[2016-07-26] MEDS ORDERED: NON-FORMULARY NEW DRUG (Ranitidine Hcl [Ranitidine Hcl] 300 MG) PO PRN (09:48)
[2016-07-26] MEDS: METOPROLOL SUCCINATE XR 25 MG TAB PO SCH (10:27)
[2016-07-26] MEDS: DOCUSATE SODIUM 100 MG CAP PO PRN (10:28)
[2016-07-26] MEDS: FAMOTIDINE 20 MG TAB PO PRN (10:28)
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
--- NOTE | 2016-07-26 15:57 | HOSPPROG ---
Hospitalist Progress Note Assessment/Plan: * bilateral hip flexor and quadriceps weakness with joint pain * Unclear cause * MRI still pending to rule out radiculopathy or cord compression * DONN and rheumatoid factors were negative recently * If we think this is the poly arthritis may need to get Rheumatology involved versus empiric trial of steroids * Could be PMR as well * hyponatremia * Consistent with SIADH * Will continue fluid restriction * hypertension * recent syncopal episode -possible seizure * recent thalamic CVA Subjective: Pain seems to be getting better although quite weak still Objective: Vital Signs Temp Pulse Resp BP Pulse Ox 36.5 C 70 14 145/57 H 98 07/26/16 07:39 07/26/16 10:27 07/26/16 07:39 07/26/16 10:27 07/26/16 07:39 Laboratory Results 07/26/16 05:16 07/26/16 05:16 07/25/16 07/26/16 07/27/16 05:59 05:59 05:59 Intake Total 1488 Output Total 250 800 Balance 1238 -800 - Physical Exam Constitutional: no apparent distress, appears nourished, not in pain Eyes: anicteric sclera, EOMI Ears, Nose, Mouth, Throat: moist mucous membranes, hearing normal, ears appear normal Cardiovascular: regular rate and rhythym, no murmur, rub, or gallop Respiratory: no respiratory distress Gastrointestinal: normoactive bowel sounds, soft, non-tender abdomen, no palpable masses Skin: warm Neurologic: AAOx3, other (Difficulty getting up from bed) Psychiatric: interacting appropriately, not anxious, not encephalopathic, thought process linear ICD10 Worksheet Patient Problems: Problems Problem Status Onset Leg weakness, bilateral Acute Acute renal failure Acute
[2016-07-26] MEDS ORDERED: GADOBUTROL 10 ML VIAL IVP ONE (16:30)
[2016-07-26] MEDS: ASPIRIN EC 81 MG TAB PO SCH (20:02)
[2016-07-26] MEDS: ATORVASTATIN CALCIUM 40 MG TAB PO SCH (20:02)
[2016-07-27] MEDS: HYDROCODONE/APAP 5/325 TAB PO PRN ×3 (05:01→21:40)
[2016-07-27] MEDS ORDERED: NON-FORMULARY NEW DRUG (Loratadine [Loratadine] 10 MG) PO SCH (09:00)
[2016-07-27] MEDS: predniSONE 20 MG TAB PO SCH (09:37)
[2016-07-27] MEDS: METOPROLOL SUCCINATE XR 25 MG TAB PO SCH (09:38)
[2016-07-27] MEDS: CETIRIZINE 10 MG TAB PO SCH (09:38)
--- NOTE | 2016-07-27 10:14 | HOSPPROG ---
Hospitalist Progress Note Assessment/Plan: * bilateral hip flexor and quadriceps weakness with joint pain * MRI of lumbar spine does show some radicular pathology but does not seem to be severe enough to cause symptoms and not sure if this would present is completely symmetric symptoms * I am suspicious for PMR * Will start low-dose steroids, if he improves dramatically and quickly then diagnosis is most likely polymyalgia rheumatica * Would need follow-up with Dr. Fernandez upon discharge * hyponatremia * Consistent with SIADH * Will continue fluid restriction * hypertension * recent syncopal episode -possible seizure * recent thalamic CVA * Will get carotid ultrasound and echocardiogram to complete workup Subjective: FEELS LITTLE BETTER TODAY. STRONGER Objective: Vital Signs Temp Pulse Resp BP Pulse Ox 36.4 C 59 L 16 143/63 H 95 07/27/16 08:00 07/27/16 08:00 07/27/16 08:00 07/27/16 08:00 07/27/16 08:00 Laboratory Results 07/26/16 05:16 07/26/16 05:16 07/26/16 07/27/16 07/28/16 05:59 05:59 05:59 Intake Total 1488 725 Output Total 250 1150 Balance 1238 -425 - Physical Exam Constitutional: no apparent distress, appears nourished, not in pain Eyes: anicteric sclera, EOMI Ears, Nose, Mouth, Throat: moist mucous membranes, hearing normal Cardiovascular: regular rate and rhythym, no murmur, rub, or gallop Respiratory: no respiratory distress, no rales or rhonchi, clear to auscultation Gastrointestinal: normoactive bowel sounds, soft, non-tender abdomen, no palpable masses Skin: warm Musculoskeletal: no joint effusions Neurologic: AAOx3 Psychiatric: interacting appropriately, not anxious, not encephalopathic, thought process linear ICD10 Worksheet Patient Problems: Problems Problem Status Onset Leg weakness, bilateral Acute Acute renal failure Acute
--- NOTE | 2016-07-27 14:02 | NEUROPROG ---
Assessment: INTERVAL HISTORY: No events overnight. Notes he was having swelling in the knee in addition to his pain, but this has subsided. Feeling better with regards to pains in the joints. Had MRI T and L-spine yesterday. EXAM: VS reviewed in EMR Still with hip flexor weakness, pain in the knees, hips and right ankle when testing strength in the BLEs. Exam unchanged. DATA: MRI T and L-spine wow personally reviewed - nothing significant on T-spine. L- spine shows moderate central canal stenosis L3-4 but with CSF signal around the roots, mild central canal stenosis L4-5, right neural foraminal stenosis L5-S1 of moderate to severe nature. IMPRESSION: // LE WEAKNESS AND PAIN // SUBACUTE ISCHEMIC STROKE // SPELL OF IMPAIRED AWARENESS Lumbar spine findings seem incidental. His central canal stenosis is not severe and would not account for joint pains, knee swelling and elevated ESR. 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 He has been started on empiric steroids. He will be monitored by primary team for improvement and will need to visit with rheumatology. Cont PT/OT. Cont previously outlined measures for stroke and his spell - assessment unchanged from initial consultation. 25 mins in direct patient care activities on the floor. Will sign off. Please recall as needed. LABORATORY 07/26/16 07/26/16 07/25/16 05:16 05:16 17:25 WBC 7.73 10^3/uL 10^3/uL (3.80-9.50) RBC 3.85 10^6/uL L 10^6/uL (4.40-6.38) Hgb 11.2 g/dL L g/dL (13.7-17.5) Hct 33.2 % L % (40.0-51.0) MCV 86.2 fL fL (81.5-99.8) MCH 29.1 pg pg (27.9-34.1) MCHC 33.7 g/dL g/dL (32.4-36.7) RDW 16.0 % H % (11.5-15.2) Plt Count 287 10^3/uL D 10^3/uL (150-400) MPV 9.6 fL fL (8.7-11.7) Neut % (Auto) 55.2 % % (39.3-74.2) Lymph % (Auto) 32.3 % % (15.0-45.0) [place] % (Auto) 9.8 % % (4.5-13.0) Eos % (Auto) 1.9 % % (0.6-7.6) Baso % (Auto) 0.4 % % (0.3-1.7) Nucleat RBC Rel Count 0.0 % % (0.0-0.2) Absolute Neuts (auto) 4.26 10^3/uL 10^3/uL (1.70-6.50) Absolute Lymphs (auto) 2.50 10^3/uL 10^3/uL (1.00-3.00) Absolute Monos (auto) 0.76 10^3/uL 10^3/uL (0.30-0.80) Absolute Eos (auto) 0.15 10^3/uL 10^3/uL (0.03-0.40) Absolute Basos (auto) 0.03 10^3/uL 10^3/uL (0.02-0.10) Absolute Nucleated RBC 0.00 10^3/uL 10^3/uL (0-0.01) Immature Gran % 0.4 % % (0.0-1.1) Immature Gran # 0.03 10^3/uL 10^3/uL (0.00-0.10) Sodium 128 mEq/L L mEq/L (134-144) Potassium 4.9 mEq/L mEq/L (3.5-5.2) Chloride 98 mEq/L mEq/L (97-110) Carbon Dioxide 20 mEq/l L mEq/l (22-31) Anion Gap 10 mEq/L mEq/L (8-16) BUN 23 mg/dL mg/dL (7-23) Creatinine 0.9 mg/dL mg/dL (0.7-1.3) Estimated GFR > 60 Glucose 104 mg/dL H mg/dL (70-100) Calcium 8.9 mg/dL mg/dL (8.5-10.4) Total Bilirubin 1.2 mg/dL mg/dL (0.1-1.4) AST 21 IU/L IU/L (17-59) ALT 23 IU/L IU/L (21-72) Alkaline Phosphatase 116 IU/L IU/L (38-126) Creatine Kinase Troponin I Total Protein 7.1 g/dL g/dL (6.3-8.2) Albumin 3.4 g/dL L g/dL (3.5-5.0) Urine Color Urine Appearance Urine pH Ur Specific [place] Urine Protein Urine Ketones Urine Blood Urine Nitrate Urine Bilirubin Urine Urobilinogen Ur Leukocyte Esterase Urine Osmolality 642 mosmo/kg mosmo/kg (300-900) Ur Random Sodium 69 mEq/L mEq/L (30-90) Urine Glucose 07/25/16 07/25/16 07/25/16 17:25 13:32 13:32 WBC RBC Hgb Hct MCV MCH MCHC RDW Plt Count MPV Neut % (Auto) Lymph % (Auto) [place] % (Auto) Eos % (Auto) Baso % (Auto) Nucleat RBC Rel Count Absolute Neuts (auto) Absolute Lymphs (auto) Absolute Monos (auto) Absolute Eos (auto) Absolute Basos (auto) Absolute Nucleated RBC Immature Gran % Immature Gran # Sodium 127 mEq/L L mEq/L (134-144) Potassium 5.5 mEq/L H mEq/L (3.5-5.2) Chloride 93 mEq/L L mEq/L (97-110) Carbon Dioxide 22 mEq/l mEq/l (22-31) Anion Gap 12 mEq/L mEq/L (8-16) BUN 24 mg/dL H mg/dL (7-23) Creatinine 1.0 mg/dL mg/dL (0.7-1.3) Estimated GFR > 60 Glucose 113 mg/dL H mg/dL (70-100) Calcium 10.0 mg/dL mg/dL (8.5-10.4) Total Bilirubin AST ALT Alkaline Phosphatase Creatine Kinase 36 IU/L IU/L (0-224) Troponin I < 0.012 ng/mL ng/mL (0-0.034) Total Protein Albumin Urine Color YELLOW Urine Appearance CLEAR Urine pH 5.0 (5.0-7.5) Ur Specific [place] 1.017 (1.002-1.030) Urine Protein NEGATIVE (NEGATIVE) Urine Ketones NEGATIVE (NEGATIVE) Urine Blood NEGATIVE (NEGATIVE) Urine Nitrate NEGATIVE (NEGATIVE) Urine Bilirubin NEGATIVE (NEGATIVE) Urine Urobilinogen NEGATIVE EU EU (0.2-1.0) Ur Leukocyte Esterase NEGATIVE (NEGATIVE) Urine Osmolality Ur Random Sodium Urine Glucose NEGATIVE (NEGATIVE) 07/25/16 13:32 WBC 9.43 10^3/uL 10^3/uL (3.80-9.50) RBC 4.24 10^6/uL L 10^6/uL (4.40-6.38) Hgb 12.1 g/dL L g/dL (13.7-17.5) Hct 35.9 % L % (40.0-51.0) MCV 84.7 fL fL (81.5-99.8) MCH 28.5 pg pg (27.9-34.1) MCHC 33.7 g/dL g/dL (32.4-36.7) RDW 16.1 % H % (11.5-15.2) Plt Count 346 10^3/uL 10^3/uL (150-400) MPV 9.6 fL fL (8.7-11.7) Neut % (Auto) 70.6 % % (39.3-74.2) Lymph % (Auto) 20.0 % % (15.0-45.0) [place] % (Auto) 7.8 % % (4.5-13.0) Eos % (Auto) 0.5 % L % (0.6-7.6) Baso % (Auto) 0.5 % % (0.3-1.7) Nucleat RBC Rel Count 0.0 % % (0.0-0.2) Absolute Neuts (auto) 6.64 10^3/uL H 10^3/uL (1.70-6.50) Absolute Lymphs (auto) 1.89 10^3/uL 10^3/uL (1.00-3.00) Absolute Monos (auto) 0.74 10^3/uL 10^3/uL (0.30-0.80) Absolute Eos (auto) 0.05 10^3/uL 10^3/uL (0.03-0.40) Absolute Basos (auto) 0.05 10^3/uL 10^3/uL (0.02-0.10) Absolute Nucleated RBC 0.00 10^3/uL 10^3/uL (0-0.01) Immature Gran % 0.6 % % (0.0-1.1) Immature Gran # 0.06 10^3/uL 10^3/uL (0.00-0.10) Sodium Potassium Chloride Carbon Dioxide Anion Gap BUN Creatinine Estimated GFR Glucose Calcium Total Bilirubin AST ALT Alkaline Phosphatase Creatine Kinase Troponin I Total Protein Albumin Urine Color Urine Appearance Urine pH Ur Specific [place] Urine Protein Urine Ketones Urine Blood Urine Nitrate Urine Bilirubin Urine Urobilinogen Ur Leukocyte Esterase Urine Osmolality Ur Random Sodium Urine Glucose Objective: Vital Signs Temp Pulse Resp BP Pulse Ox 36.4 C 59 L 16 143/63 H 95 07/27/16 08:00 07/27/16 08:00 07/27/16 08:00 07/27/16 08:00 07/27/16 08:00 Laboratory Results 07/26/16 05:16 07/26/16 05:16 07/26/16 07/27/16 07/28/16 05:59 05:59 05:59 Intake Total 1488 725 Output Total 250 1150 Balance 0088 -463 Allergies/Adverse Reactions: No Known Allergies Allergy (Verified 07/25/16 11:46)
--- NOTE | 2016-07-27 15:00 | ECHO ---
[id number] + + [address] : : [place] [address] : : [phone] + + Adult Echocardiographic Report + -+ :Name: RAVIN GRANDA SStudy Date: 07/27/2016 01:10 PM : : Hospital Admission Number: [id number] : :: 1940 Gender: Male Height: 68 in : :Age: 75 yrs Race: WH Weight: 165 lb : :Reason For Study: CVA : : BSA: 1.9 meters 2: :History: Acute Renal failure, abnormal EKG, Tachycardia : + -+ MMode/2D Measurements \T\ Calculations IVSd: 0.94 cm LVIDd: 4.5 cm FS: 46.2 % LVOT diam: 1.8 cm LVPWd: 0.94 cm LVIDs: 2.4 cm EDV(Teich): 93.2 ml LVOT area: 2.7 cm2 ESV(Teich): 20.7 ml EF(Teich): 77.7 % Normal Measurement Values: + + :LVIDd (3.5-5.7cm) IVSd (0.6-1.1cm) LVPWd (0.6-1.1cm) Aortic Root (2.0-3.7cm)Left Atrium (1.5-4.0cm): :LV Vol(d) (76-115ml) LV Vol(s) (29-48ml) Ejec Fraction (50-65%)PV Vikas (0.6- 1.2m/s) TV Vikas (0.4-1.0m/s) : :MV E Vikas (0.8-1.0m/s)MV A Vikas (0.3-1.0m/s)LVOT Vikas (0.7-1.2m/s) Asc Ao Vikas ( 0.9-1.8m/s) : + + Doppler Measurements \T\ Calculations MV E max vikas: MV V2 mean: Ao mean PG: LV V1 max: 86.9 cm/sec 49.6 cm/sec 1.9 mmHg 98.7 cm/sec MV A max vikas: MV mean PG: Ao V2 mean: LV V1 max P.3 cm/sec 1.2 mmHg 65.5 cm/sec 3.9 mmHg MV E/A: 0.90 MV V2 VTI: 38.9 cm Ao V2 VTI: 22.4 cmLV V1 mean PG: MV dec time: MVA(VTI): 1.4 cm2 ALIN(I,D): 2.5 cm2 1.8 mmHg 0.24 sec LV V1 mean: 60.3 cm/sec LV V1 VTI: 21.0 cm SV(LVOT): 56.3 ml PA V2 max: 98.9 cm/sec PA max P.9 mmHg Left Ventricle The left ventricle is normal in size and function. There is normal left ventricular wall thickness. Ejection Fraction = 70-75%. There is Doppler evidence for diastolic dysfunction. No regional wall motion abnormalities noted. Right Ventricle The right ventricle is mildly dilated. The right ventricular systolic function is normal. Atria The left atrial size is normal. Right atrial size is normal. Mitral Valve The mitral valve is normal in structure and function. There is no mitral valve stenosis. There is no mitral regurgitation noted. Tricuspid Valve The tricuspid valve is normal in structure and function. There is no tricuspid stenosis. No tricuspid regurgitation. Aortic Valve The aortic valve is normal in structure and function. There is no aortic stenosis. There is no aortic insufficiency. Pulmonic Valve The pulmonic valve is not well visualized. There is no pulmonic valvular stenosis. There is no pulmonic valvular regurgitation. Pericardium/Pleural There is a fat pad seen. Conclusion A complete two-dimensional transthoracic echocardiogram was performed (2D, M-mode, Doppler and color flow Doppler). The left ventricle is normal in size and function. Ejection Fraction = 70-75%. There is Doppler evidence for diastolic dysfunction. Mild RV dilation with normal RV systolic function No significant valvular disease Final Reading Physician: Dr Tonya Solano electronically signed on 07/27/2016 02:59 PM Ordering Physician: Nati Chen Performed By: Oneida Jacob
[2016-07-27] MEDS: FAMOTIDINE 20 MG TAB PO PRN (17:06)
[2016-07-27] MEDS: ASPIRIN EC 81 MG TAB PO SCH (19:57)
[2016-07-27] MEDS: ATORVASTATIN CALCIUM 40 MG TAB PO SCH (19:57)
[2016-07-27] MEDS: DOCUSATE SODIUM 100 MG CAP PO PRN (19:57)
[2016-07-27 23:34] VITALS: RESP 16
[2016-07-28 07:11] VITALS: TEMP 98.2; O2SAT 99
[2016-07-28] MEDS: METOPROLOL SUCCINATE XR 25 MG TAB PO SCH (08:27)
[2016-07-28] MEDS: CETIRIZINE 10 MG TAB PO SCH (08:27)
[2016-07-28] MEDS: HYDROCODONE/APAP 5/325 TAB PO PRN (08:27)
[2016-07-28] MEDS: predniSONE 20 MG TAB PO SCH (08:27)
[2016-07-28 08:30] VITALS: BP 147/59; PULSE 59
[2016-07-28] MEDS: DOCUSATE SODIUM 100 MG CAP PO PRN (08:35)
--- NOTE | 2016-07-28 10:10 | PDIAF ---
- Diagnosis Diagnosis: Polymyalgia rheumatica Code Status: Full Code - Medication Management Discharge Medications: Medications to Continue on Transfer Aspirin EC [Aspirin EC 81 mg (*)] 81 mg PO HS 07/25/16 [Last Taken 07/24/16] Atorvastatin Calcium [Lipitor 40 mg (*)] 40 mg PO HS 07/25/16 [Last Taken ] Cholecalciferol Vit D3 [Vitamin D3 (*)] 2,000 units PO DAILY 07/25/16 [Last Taken 07/24/16] Cyanocobalamin [Vitamin B12 (*)] 1,000 mcg PO DAILY 07/25/16 [Last Taken ] Cyanocobalamin [Vitamin B12 1000MCG/ML (*)] 1 ml IM TU 07/25/16 [Last Taken 05/09] Docusate Sodium [Colace 100 MG (*)] 100 mg PO DAILY PRN 07/25/16 [Last Taken Unknown] Herbals/Supplements -Info Only 1 ea PO DAILY 07/25/16 [Last Taken 07/24/16] Loratadine 10 mg PO DAILY 07/25/16 [Last Taken 07/24/16] Magnesium Oxide [Magnesium Oxide 500 mg] 1,000 mg PO DAILY 07/25/16 [Last Taken 07/24/16] Metoprolol Succinate Xr [Toprol Xl 25 mg (*)] 25 mg PO DAILY 07/25/16 [Last Taken 07/24/16] [place]-3 Fatty Acids [Fish Oil 1000 mg (*)] 1,200 mg PO DAILY 07/25/16 [Last Taken 07/24/16] Ranitidine HCl 300 mg PO BID PRN 07/25/16 [Last Taken 07/25/16] amLODIPine BESYLATE [Norvasc 10 mg (*)] 10 mg PO DAILY 07/25/16 [Last Taken 07/07] predniSONE 20 mg PO DAILY #30 tablet 07/28/16 [Last Taken Unknown] Discharge Medications: Refer to the Discharge Home Medication list for PRN reason. - Orders Services needed: Home Care, Registered Nurse, Physical Therapy, Occupational Therapy Home Care Face to Face: I certify that this patient was under my care and that I had the required [id number] encounter meeting the encounter requirements on the discharge day. My findings support the fact that the patient is homebound as defined in CMS Chapter 7 Medicare Benefits Manual 30.1.1, The condition of the patient is such that there exists a normal inability to leave home and consequently, leaving home would require a considerable and taxing effort. Diet Recommendation: fluid restriction (use comment for amount) (1500 ml per day ) - Labs/Radiology BMP Date: 07/31/16 (results to PCP) - Follow Up Care Current Providers and Referrals: Shorty Tolliver MD [Primary Care Provider] - As per Instructions Michelle De Souza DO [Non Staff and Non MD] -
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
== END 2016-07-28 12:00 | disposition home health service (06) | DRG 546 ==
LOC: F3N 15:41
PROVIDERS: ADMIT Internal Medicine; ATTEND Internal Medicine
DX: M35.3 Polymyalgia rheumatica (principal); E22.2 Syndrome of inappropriate secretion of antidiuretic hormone; I10 Essential (primary) hypertension; Z86.73 Personal history of transient ischemic attack (TIA), and cerebral infarction without residual deficits; Z96.611 Presence of right artificial shoulder joint
CPT/HCPCS: 86334-90; 97116-GP; 97161-GP; 97166-GO; 97530-GO; 97530-GP; 97535-GO; A9585; G8978-GP-CK; G8979-GP-CI; G8980-GP-CI; G8987-GO-CJ; G8988-GO-CI; G8989-GO-CI

== ENCOUNTER → 2016-07-31 | Outpatient (CLI) | payer OTHER, MEDICARE | LOC: BMCIMAGING 10:03 | PROVIDERS: ATTEND Internal Medicine Rheumatology | DX: M11.261 Other chondrocalcinosis, right knee (principal); S82.201A Unspecified fracture of shaft of right tibia, initial encounter for closed fracture ==